=== PATIENT | female | born 1970 | race Caucasian/White ===

== ENCOUNTER 2016-04-22 16:45 | Emergency (ER) | payer MEDICAID ==
--- NOTE | 2016-04-22 17:14 | ER Document Report ---
ED Medical Screen (RME) - General Stated Complaint: CHEST PAIN Mode of Arrival: Wheelchair Information source: Patient Notes: Patient presents to the emergency department with complaints of cough congestion for about a week. Reports fever on and off. Last Tylenol was 8:00 this morning. He reports chest is sore from coughing I have greeted and performed a rapid initial assessment of this patient. A comprehensive ED assessment and evaluation of the patient, analysis of test results and completion of the medical decision making process will be conducted by additional ED providers. TRAVEL OUTSIDE OF THE [place] IN LAST 30 DAYS: No - Related Data Allergies/Adverse Reactions: cephalexin monohydrate [From Keflex] Allergy (Verified 07/25/15 19:13) rash Past Medical History - Past Medical History Cardiac Medical History: Denies: Hx Coronary Artery Disease, Hx Heart Attack, Hx Hypertension Pulmonary Medical History: Reports: Hx Pneumonia - hx 7-8 years ago Denies: Hx Asthma, Hx Bronchitis, Hx COPD, Hx Tuberculosis Neurological Medical History: Denies: Hx Cerebrovascular Accident, Hx Seizures Endocrine Medical History: Denies: Hx Diabetes Mellitus Type 1, Hx Diabetes Mellitus Type 2 GI Medical History: Reports: Hx Gastroesophageal Reflux Disease. Denies: Hx Hiatal Hernia Musculoskeltal Medical History: Denies Hx Arthritis Psychiatric Medical History: Reports: Hx Anxiety Past Surgical History: Reports: Hx Breast Surgery, Hx Section - X1, Hx Tubal Ligation. Denies: Hx Hysterectomy, Hx Pacemaker - Immunizations Immunizations up to date: Yes Hx Diphtheria, Pertussis, Tetanus Vaccination: Yes Physical Exam - Vital signs Vitals: Temp Pulse Resp BP Pulse Ox 98.2 F 84 22 H 150/77 H 99 04/22/16 16:54 04/22/16 16:54 04/22/16 16:54 04/22/16 16:54 04/22/16 16:54 Course - Vital Signs Vital signs: Temp Pulse Resp BP Pulse Ox 98.2 F 84 22 H 150/77 H 99 04/22/16 16:54 04/22/16 16:54 04/22/16 16:54 04/22/16 16:54 04/22/16 16:54
[2016-04-22] MEDS ORDERED: AZITHROMYCIN 250 MG TABLET PO ONE (18:46)
[2016-04-22] MEDS ORDERED: IPRATROPIUM/ALBUTEROL 0.5-2.5 MG/3 ML AMPUL NEB ONE (18:46)
[2016-04-22] MEDS ORDERED: BENZONATATE 100 MG CAPSULE PO ONE (18:46)
[2016-04-22] MEDS ORDERED: HYDROCODONE/ACETAMINOPHEN 5-325 MG TABLET PO ONE (18:46)
[2016-04-22] MEDS ORDERED: ALBUTEROL SULFATE 0.083% NEB 2.5 MG/3 ML AMPUL NEB ONE (18:46)
--- NOTE | 2016-04-22 18:48 | ER Document Report ---
ED Respiratory Problem - General Chief Complaint: Cough Stated Complaint: CHEST PAIN Time seen by provider: 18:46 Mode of Arrival: Wheelchair TRAVEL OUTSIDE OF THE [place] IN LAST 30 DAYS: No - HPI Patient complains to provider of: Cough, Short of breath Onset: Last week Duration: Worse/persistent Quality of pain: Achy Severity: Moderate Pain Level: 3 Context: Smoker Short of Breath: Moderate Chest pain/discomfort: Tightness Cough: Productive Sputum amount: Small Sputum color: Yellow Sputum consistency: Mucoid Associated symptoms: Congestion, Cough, Short of breath, Wheezing Similar symptoms previously: Yes Recently seen / treated by doctor: No Notes: Patient is a 45-year-old female presenting to the emergency room complaining of painful cough productive of a small amount of yellow phlegm that's been present for the past week, she denies a fever, she reports her daughter was ill with similar symptoms recently, patient is a smoker - Related Data Allergies/Adverse Reactions: cephalexin monohydrate [From Keflex] Allergy (Verified 07/25/15 19:13) rash Past Medical History - General Information source: Patient - Social History Smoking Status: Current Every Day Smoker Chew tobacco use (# tins/day): No Frequency of alcohol use: None Drug Abuse: None Family History: Malignancy - father, lung cancer Patient has suicidal ideation: No Patient has homicidal ideation: No - Past Medical History Cardiac Medical History: Denies: Hx Coronary Artery Disease, Hx Heart Attack, Hx Hypertension Pulmonary Medical History: Reports: Hx Pneumonia - hx 7-8 years ago Denies: Hx Asthma, Hx Bronchitis, Hx COPD, Hx Tuberculosis Neurological Medical History: Denies: Hx Cerebrovascular Accident, Hx Seizures Endocrine Medical History: Denies: Hx Diabetes Mellitus Type 1, Hx Diabetes Mellitus Type 2 Renal/ Medical History: Denies: Hx Peritoneal Dialysis GI Medical History: Reports: Hx Gastroesophageal Reflux Disease. Denies: Hx Hiatal Hernia Musculoskeltal Medical History: Denies Hx Arthritis Psychiatric Medical History: Reports: Hx Anxiety Past Surgical History: Reports: Hx Breast Surgery, Hx Section - X1, Hx Tubal Ligation. Denies: Hx Hysterectomy, Hx Pacemaker - Immunizations Immunizations up to date: Yes Hx Diphtheria, Pertussis, Tetanus Vaccination: Yes Hx Pneumococcal Vaccination: 01/27/12 Review of Systems - Review of Systems Constitutional: No symptoms reported. denies: Fever EENT: No symptoms reported Cardiovascular: No symptoms reported Respiratory: See HPI Gastrointestinal: No symptoms reported Genitourinary: No symptoms reported Female Genitourinary: No symptoms reported Musculoskeletal: No symptoms reported Skin: No symptoms reported Hematologic/Lymphatic: No symptoms reported Neurological/Psychological: No symptoms reported -: Yes All other systems reviewed and negative Physical Exam - Vital signs Vitals: Temp Pulse Resp BP Pulse Ox 98.2 F 84 22 H 150/77 H 99 04/22/16 16:54 04/22/16 16:54 04/22/16 16:54 04/22/16 16:54 04/22/16 16:54 Interpretation: Hypertensive, Tachypneic - General General appearance: Appears well, Alert - HEENT Head: Normocephalic, Atraumatic Eyes: Normal Pupils: PERRL - Respiratory Respiratory status: No respiratory distress Chest status: Nontender Breath sounds: Nonproductive cough, Wheezing Chest palpation: Normal - Cardiovascular Rhythm: Regular Heart sounds: Normal auscultation Murmur: No - Abdominal Inspection: Normal Distension: No distension Bowel sounds: Normal Tenderness: Nontender Organomegaly: No organomegaly - Back Back: Normal, Nontender - Extremities General upper extremity: Normal inspection, Nontender, Normal color, Normal ROM , Normal temperature General lower extremity: Normal inspection, Nontender, Normal color, Normal ROM , Normal temperature, Normal weight bearing. No: Maryjane's sign - Neurological Neuro grossly intact: Yes Cognition: Normal Orientation: AAOx4 Shayna Coma Scale Eye Opening: Spontaneous [place] Coma Scale Verbal: Oriented [place] Coma Scale Motor: Obeys Commands Shayna Coma Scale Total: 15 Speech: Normal Motor strength normal: LUE, RUE, LLE, RLE Sensory: Normal - Psychological Associated symptoms: Normal affect, Normal mood - Skin Skin Temperature: Warm Skin Moisture: Dry Skin Color: Normal Course - Re-evaluation Re-evalutation: 04/22/16 19:46 Patient resting comfortably, reports improvement of symptoms, lungs are clear to auscultation, will attempt to ambulate patient and make sure shortness of breath does not worsen, anticipate likely discharge home with prescriptions and follow-up 04/22/16 19:54 Patient able to ambulate without difficulty, reports feeling much better and ready to go home, she was given several prescriptions and information for follow -up, advised to return if symptoms worsen or any additional concerns, patient also advised to quit smoking, patient acknowledges understanding and agreement with this plan - Vital Signs Vital signs: Temp Pulse Resp BP Pulse Ox 98.2 F 84 22 H 150/77 H 99 04/22/16 16:54 04/22/16 16:54 04/22/16 16:54 04/22/16 16:54 04/22/16 16:54 - Diagnostic Test Radiology reviewed: Image reviewed, Reports reviewed - EKG Interpretation by Me EKG shows normal: Sinus rhythm Rate: Normal Rhythm: NSR When compared to previous EKG there are: No significant change Discharge - Discharge Clinical Impression: COPD exacerbation Acute bronchitis Qualifiers: Bronchitis organism: unspecified organism Qualified Code(s): J20.9 - Acute bronchitis, unspecified Condition: Stable Disposition: HOME, SELF-CARE Instructions: Bronchitis ([facility]), Bronchitis With Bronchospasm (Wheezing) ([facility]), Chronic Obstructive Lung Disease ([facility]) Additional Instructions: Follow up with your primary care provider in one to 2 days. Return to the emergency room immediately if symptoms worsen or any additional concerns. Prescriptions: Hydrocodone Bit/Homatropine [Hycodan Syrup 5-1.5 mg/5 ml Ud Cup] 5 ml PO Q4HP PRN #120 ml PRN Reason: Albuterol Sulfate [Proair HFA Inhalation Aerosol 8.5 gm MDI] 1 puff IH Q4 PRN # 1 mdi PRN Reason: Azithromycin [Zithromax 250 mg Tablet] 250 mg PO ASDIR PRN #4 tablet PRN Reason: Prednisone 40 mg PO DAILY #8 tablet Forms: Smoking Cessation Education Referrals: ELY ALTMAN MD [Primary Care Provider] - Follow up as needed
--- NOTE | 2016-04-22 19:22 | EKG REPORT ---
SEVERITY:- BORDERLINE ECG - SINUS RHYTHM PROBABLE LEFT ATRIAL ABNORMALITY : Confirmed by: Veronica Buckley MD 22-Apr-2016 19:22:06
[2016-04-22] MEDS ORDERED: PREDNISONE 20 MG TABLET PO ONE (19:45)
[2016-04-22 20:14] VITALS: BP 120/89
== END 2016-04-22 20:16 | disposition home or self-care (01) ==
LOC: ER 16:45
DX: J44.0 Chronic obstructive pulmonary disease with (acute) lower respiratory infection (principal); J20.9 Acute bronchitis, unspecified; J44.1 Chronic obstructive pulmonary disease with (acute) exacerbation; R05 Cough; R06.02 Shortness of breath; F17.200 Nicotine dependence, unspecified, uncomplicated; Z88.1 Allergy status to other antibiotic agents; Z80.1 Family history of malignant neoplasm of trachea, bronchus and lung
CPT/HCPCS: 93005; 94640 ×2; 99283; 71020; 93010; J3490; Q0144; J7512; J7620

== ENCOUNTER 2016-07-14 16:33 | Emergency (ER) | payer MEDICAID ==
[2016-07-14 16:39] VITALS: BP 128/89
[2016-07-14] MEDS ORDERED: OXYCODONE-ACETAMINOPHEN 5-325 MG TABLET PO ONE (17:02)
[2016-07-14] MEDS ORDERED: PROMETHAZINE HCL 25 MG TABLET PO ONE (17:02)
[2016-07-14 17:33] LABS: ABSOLUTE BASOPHILS # (AUTO) 0.1 10^3/uL (0.0-0.2); ABSOLUTE LYMPHOCYTES (AUTO) 2.2 10^3/uL (0.5-4.7); BASOPHILS % (AUTO) 0.4 % (0-2); EOSINOPHILS % (AUTO) 0.4 % (0-6); HEMOGLOBIN 14.1 g/dL (12.0-15.5); HGB HCT DIFFERENCE 0.3; LYMPHOCYTES % (AUTO) 19.3 % (13-45); MEAN CORPUSCULAR HEMOGLOBIN 28.4 pg (27.0-33.4); MEAN CORPUSCULAR HGB CONC 33.5 g/dL (32.0-36.0); MEAN CORPUSCULAR VOLUME 85 fl (80-97); RED BLOOD COUNT 4.95 10^6/uL (3.72-5.28); RED CELL DISTRIBUTION WIDTH 13.9 % (11.5-14.0); SEGMENTED NEUTROPHILS % (AUTO) 70.9 % (42-78); WHITE BLOOD COUNT 11.3 10^3/uL (4.0-10.5)
--- NOTE | 2016-07-14 17:36 | ER Document Report ---
ED Medical Screen (RME) - General Chief Complaint: Chest Congestion Stated Complaint: CHEST PAIN Notes: Patient says that she has been very congested with a cough for a couple of days. Today, she has significant substernal anterior chest pains that it especially hurts when she takes a deep breath or tries to cough and for that reason she is producing very little phlegm. She is been sleeping all the time, as well. Not aware of any fever. Patient is a cigarette smoker. No history of asthma or COPD. On no chronic medications. TRAVEL OUTSIDE OF THE [place] IN LAST 30 DAYS: No - Related Data Allergies/Adverse Reactions: cephalexin monohydrate [From [employer]] Allergy (Verified 07/14/16 16:36) rash Past Medical History - Past Medical History Cardiac Medical History: Denies: Hx Coronary Artery Disease, Hx Heart Attack, Hx Hypertension Pulmonary Medical History: Reports: Hx Pneumonia - hx 7-8 years ago Denies: Hx Asthma, Hx Bronchitis, Hx COPD, Hx Tuberculosis Neurological Medical History: Denies: Hx Cerebrovascular Accident, Hx Seizures Endocrine Medical History: Denies: Hx Diabetes Mellitus Type 1, Hx Diabetes Mellitus Type 2 Renal/ Medical History: Denies: Hx Peritoneal Dialysis GI Medical History: Reports: Hx Gastroesophageal Reflux Disease. Denies: Hx Hiatal Hernia Musculoskeltal Medical History: Denies Hx Arthritis Psychiatric Medical History: Reports: Hx Anxiety Past Surgical History: Reports: Hx Breast Surgery, Hx Section - X1, Hx Tubal Ligation. Denies: Hx Hysterectomy, Hx Pacemaker - Immunizations Immunizations up to date: Yes Hx Diphtheria, Pertussis, Tetanus Vaccination: Yes Physical Exam - Vital signs Vitals: Temp Pulse Resp BP Pulse Ox 97.9 F 79 20 128/89 H 99 07/14/16 16:37 07/14/16 16:37 07/14/16 16:37 07/14/16 16:37 07/14/16 16:37 Course - Vital Signs Vital signs: Temp Pulse Resp BP Pulse Ox 97.9 F 79 20 128/89 H 99 07/14/16 16:37 07/14/16 16:37 07/14/16 16:37 07/14/16 16:37 07/14/16 16:37 - Laboratory Result Diagrams: 07/14/16 17:05 07/14/16 17:05
[2016-07-14 17:48] LABS: ALANINE AMINOTRANSFERASE 27 U/L (9-52); ALBUMIN 4.4 g/dL (3.5-5.0); ALKALINE PHOSPHATASE 66 U/L (38-126); ANION GAP 12 (5-19); ASPARTATE AMINO TRANSFERASE 20 U/L (14-36); BILIRUBIN,DIRECT 0.3 mg/dL (0.0-0.4); BILIRUBIN,TOTAL 0.6 mg/dL (0.2-1.3); BLOOD UREA NITROGEN 10 mg/dL (7-20); CALCIUM 9.4 mg/dL (8.4-10.2); CARBON DIOXIDE 28 mmol/L (22-30); CHLORIDE 101 mmol/L (98-107); CREATINE KINASE 61 U/L (30-135); GLUCOSE 133 mg/dL (75-110); SODIUM 141.4 mmol/L (137-145); TOTAL PROTEIN 7.2 g/dL (6.3-8.2)
[2016-07-14 18:00] LABS: TROPONIN I < 0.012 ng/mL
--- NOTE | 2016-07-14 20:06 | EKG REPORT ---
SEVERITY:- NORMAL ECG - SINUS RHYTHM : Confirmed by: Veronica Buckley MD 14-Jul-2016 20:05:46
== END 2016-07-14 23:17 | disposition left against medical advice (07) ==
LOC: ER 16:33
DX: Z53.9 Procedure and treatment not carried out, unspecified reason (principal); R09.89 Other specified symptoms and signs involving the circulatory and respiratory systems; R07.9 Chest pain, unspecified; R05 Cough
CPT/HCPCS: 93005; 99281; 36415; 87040; 82553; 82550; 85025; 80053; 84484; 71020; 93010; J3490

== ENCOUNTER 2016-08-31 18:39 | Emergency (ER) | payer MEDICAID ==
[2016-08-31] MEDS ORDERED: KETOROLAC TROMETHAMINE INJ/PF 30 MG/1 ML SDV IV ONE (19:23)
[2016-08-31] MEDS ORDERED: LORAZEPAM INJ 2 MG/1 ML VIAL IV ONE (19:23)
[2016-08-31] MEDS ORDERED: LIDOCAINE 4%/TETRACAINE 0.5%/EPI 0.18% 5 ML TOPICAL SOLN TOP ONE (19:23)
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
[2016-08-31 20:23] LABS: ABSOLUTE BASOPHILS # (AUTO) 0.1 10^3/uL (0.0-0.2); ABSOLUTE LYMPHOCYTES (AUTO) 2.4 10^3/uL (0.5-4.7); ABSOLUTE MONOCYTES (AUTO) 0.6 10^3/uL (0.1-1.4); BASOPHILS % (AUTO) 0.9 % (0-2); EOSINOPHILS % (AUTO) 0.6 % (0-6); HEMATOCRIT 40.9 % (36.0-47.0); HEMOGLOBIN 13.2 g/dL (12.0-15.5); HGB HCT DIFFERENCE -1.3; LYMPHOCYTES % (AUTO) 29.4 % (13-45); MEAN CORPUSCULAR HEMOGLOBIN 27.8 pg (27.0-33.4); MEAN CORPUSCULAR HGB CONC 32.4 g/dL (32.0-36.0); MEAN CORPUSCULAR VOLUME 86 fl (80-97); MONOCYTES % (AUTO) 7.6 % (3-13); RED BLOOD COUNT 4.76 10^6/uL (3.72-5.28); RED CELL DISTRIBUTION WIDTH 13.8 % (11.5-14.0); SEGMENTED NEUTROPHILS % (AUTO) 61.5 % (42-78); WHITE BLOOD COUNT 8.1 10^3/uL (4.0-10.5)
[2016-08-31] MEDS ORDERED: LIDOCAINE 1% INJ-PF (10 MG/ML) 30 ML SDV INJ ONE (20:29)
[2016-08-31 20:33] LABS: ALANINE AMINOTRANSFERASE 28 U/L (9-52); ALBUMIN 3.9 g/dL (3.5-5.0); ALCOHOL 36 mg/dL (NONE DETECTED); ALKALINE PHOSPHATASE 62 U/L (38-126); ANION GAP 11 (5-19); ASPARTATE AMINO TRANSFERASE 18 U/L (14-36); BILIRUBIN,DIRECT 0.2 mg/dL (0.0-0.4); BILIRUBIN,TOTAL 0.4 mg/dL (0.2-1.3); BLOOD UREA NITROGEN 12 mg/dL (7-20); CALCIUM 9.2 mg/dL (8.4-10.2); CARBON DIOXIDE 24 mmol/L (22-30); CHLORIDE 108 mmol/L (98-107); CREATININE RESULT 0.83 mg/dL (0.52-1.25); GLUCOSE 106 mg/dL (75-110); SODIUM 142.7 mmol/L (137-145); TOTAL PROTEIN 6.7 g/dL (6.3-8.2)
[2016-08-31 20:43] LABS: APPEARANCE,URINE CLEAR; BILIRUBIN,URINE NEGATIVE (NEGATIVE); GLUCOSE, URINE NEGATIVE (NEGATIVE); KETONES,URINE NEGATIVE (NEGATIVE); LEUKOCYTE ESTERASE,URINE MODERATE (NEGATIVE); NITRITE,URINE NEGATIVE (NEGATIVE); PROTEIN,URINE NEGATIVE (NEGATIVE); URINE SPECIFIC GRAVITY 1.002; UROBILINOGEN,URINE NEGATIVE mg/dL (<2.0)
[2016-08-31 20:53] LABS: URINE BARBITURATES SCREEN NEGATIVE; URINE METHADONE SCREEN NEGATIVE; URINE OPIATES LOW UNCONFIRMED POSITIVE; URINE PHENCYCLIDINE SCREEN NEGATIVE
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
[2016-08-31] MEDS ORDERED: SULFAMETHOXAZOLE/TRIMETHOPRIM 800-160 MG TABLET PO ONE (22:06)
[2016-08-31] MEDS ORDERED: IBUPROFEN 800 MG TABLET PO ONE (22:06)
[2016-08-31 22:28] VITALS: BP 125/88
--- NOTE | 2016-09-01 09:11 | EKG REPORT ---
SEVERITY:- ABNORMAL ECG - SINUS RHYTHM BORDERLINE LEFT AXIS DEVIATION NONSPECIFIC T ABNORMALITIES, INFERIOR LEADS : Confirmed by: Veronica Buckley MD 01-Sep-2016 09:10:42
== END 2016-08-31 22:26 | disposition home or self-care (01) ==
LOC: ER 18:39
PROC: 0HQDXZZ Repair Right Lower Arm Skin, External Approach (ICD-10-PCS; principal; 2016-08-31)
DX: S41.111A Laceration without foreign body of right upper arm, initial encounter (principal); F41.9 Anxiety disorder, unspecified; M54.5 Low back pain; Z79.899 Other long term (current) drug therapy; Y09 Assault by unspecified means; F17.200 Nicotine dependence, unspecified, uncomplicated; N39.0 Urinary tract infection, site not specified
CPT/HCPCS: 93005; 99284; 96374; 36415; 80307 ×4; 85025; 80053; 81001; 72220; 73090; 93010; 12004; J3490 ×3; J1885

== ENCOUNTER 2016-09-11 14:59 | Emergency (ER) | payer MEDICAID ==
[2016-09-11 15:04] VITALS: BP 125/62
--- NOTE | 2016-09-11 15:32 | ER Document Report ---
HPI - HPI Patient complains to provider of: suture removal Onset: Other - 12 days Onset/Duration: Better Quality of pain: Achy Pain Level: 3 Context: Pt States she is here for suture removal to laceration to the right forearm. Pt does states she has had occasional muscle spasms to area just superior to laceration. Associated Symptoms: Other - muscle spasms Exacerbated by: Denies Relieved by: Denies Similar symptoms previously: No Recently seen / treated by doctor: Yes - ROS ROS below otherwise negative: Yes Systems Reviewed and Negative: Yes All other systems reviewed and negative - CONSTITUTIONAL Constitutional: DENIES: Fever - NEURO Neurology: DENIES: Weakness - REPRODUCTIVE Reproductive: DENIES: : - MUSCULOSKELETAL Musculoskeletal: REPORTS: Extremity pain - DERM Skin Color: Normal Skin Problems: Laceration Past Medical History - General Information source: Patient - Social History Smoking Status: Current Every Day Smoker Frequency of alcohol use: None Drug Abuse: None Occupation: none Lives with: Family Family History: Malignancy - father, lung cancer Patient has suicidal ideation: No Patient has homicidal ideation: No - Past Medical History Cardiac Medical History: Denies: Hx Coronary Artery Disease, Hx Heart Attack, Hx Hypertension Pulmonary Medical History: Reports: Hx Pneumonia - hx 7-8 years ago Denies: Hx Asthma, Hx Bronchitis, Hx COPD, Hx Tuberculosis Neurological Medical History: Denies: Hx Cerebrovascular Accident, Hx Seizures Endocrine Medical History: Denies: Hx Diabetes Mellitus Type 1, Hx Diabetes Mellitus Type 2 Renal/ Medical History: Denies: Hx Peritoneal Dialysis GI Medical History: Reports: Hx Gastroesophageal Reflux Disease. Denies: Hx Hiatal Hernia Musculoskeltal Medical History: Denies Hx Arthritis Psychiatric Medical History: Reports: Hx Anxiety Past Surgical History: Reports: Hx Breast Surgery, Hx Section - X1, Hx Tubal Ligation. Denies: Hx Hysterectomy, Hx Pacemaker - Immunizations Immunizations up to date: Yes Hx Diphtheria, Pertussis, Tetanus Vaccination: Yes Hx Pneumococcal Vaccination: 01/27/12 Vertical Provider Document - CONSTITUTIONAL Agree With Documented VS: Yes Exam Limitations: No Limitations General Appearance: WD/WN, No Apparent Distress - INFECTION CONTROL TRAVEL OUTSIDE OF THE [place] IN LAST 30 DAYS: No - HEENT HEENT: Atraumatic, Normocephalic - NECK Neck: Normal Inspection - RESPIRATORY Respiratory: No Respiratory Distress O2 Sat by Pulse Oximetry: 98 - CARDIOVASCULAR Pulses: Normal: Radial - MUSCULOSKELETAL/EXTREMETIES Musculoskeletal/Extremeties: MAEW, FROM, Non-Tender, No Edema - NEURO Level of Consciousness: Awake, Alert, Appropriate Motor/Sensory: No Motor Deficit - DERM Integumentary: Warm, Dry, Laceration - Sutured laceration to right forearm with 14 intact sutures Course - Vital Signs Vital signs: Temp Pulse Resp BP Pulse Ox 98.1 F 85 16 125/62 98 09/11/16 15:03 09/11/16 15:03 09/11/16 15:03 09/11/16 15:03 09/11/16 15:03 Discharge - Discharge Clinical Impression: Encounter for removal of sutures Condition: Stable Disposition: HOME, SELF-CARE Instructions: Suture Removal Additional Instructions: Return as needed for any new or worsening symptoms follow up with orthopedic doctor for any continued pain or problems Referrals: [facility] [Provider Group] - Follow up as needed
== END 2016-09-11 16:17 | disposition home or self-care (01) ==
LOC: ER 14:59
DX: Z48.02 Encounter for removal of sutures (principal); F17.200 Nicotine dependence, unspecified, uncomplicated

== ENCOUNTER → 2016-10-05 | Outpatient (CLI) | payer MEDICAID ==
[2016-10-05 17:25] LABS: ABSOLUTE LYMPHOCYTES (AUTO) 1.5 10^3/uL (0.5-4.7); ABSOLUTE MONOCYTES (AUTO) 1.4 10^3/uL (0.1-1.4); ABSOLUTE NEUT (AUTO) 10.9 10^3/uL (1.7-8.2); BASOPHILS % (AUTO) 0.3 % (0-2); HEMATOCRIT 45.8 % (36.0-47.0); HEMOGLOBIN 14.6 g/dL (12.0-15.5); LYMPHOCYTES % (AUTO) 11.1 % (13-45); MEAN CORPUSCULAR HEMOGLOBIN 27.2 pg (27.0-33.4); MEAN CORPUSCULAR HGB CONC 31.9 g/dL (32.0-36.0); MEAN CORPUSCULAR VOLUME 85 fl (80-97); MONOCYTES % (AUTO) 9.9 % (3-13); RED BLOOD COUNT 5.38 10^6/uL (3.72-5.28); RED CELL DISTRIBUTION WIDTH 13.8 % (11.5-14.0); SEGMENTED NEUTROPHILS % (AUTO) 78.7 % (42-78); WHITE BLOOD COUNT 13.9 10^3/uL (4.0-10.5)
[2016-10-05 17:49] LABS: ALANINE AMINOTRANSFERASE 37 U/L (9-52); ALBUMIN 4.4 g/dL (3.5-5.0); ALKALINE PHOSPHATASE 73 U/L (38-126); ANION GAP 15 (5-19); ASPARTATE AMINO TRANSFERASE 24 U/L (14-36); BILIRUBIN,DIRECT 0.3 mg/dL (0.0-0.4); BILIRUBIN,TOTAL 0.5 mg/dL (0.2-1.3); BLOOD UREA NITROGEN 9 mg/dL (7-20); CALCIUM 9.2 mg/dL (8.4-10.2); CARBON DIOXIDE 25 mmol/L (22-30); CHLORIDE 98 mmol/L (98-107); CREATININE RESULT 0.77 mg/dL (0.52-1.25); GLUCOSE 91 mg/dL (75-110); POTASSIUM 4.6 mmol/L (3.6-5.0); SODIUM 137.5 mmol/L (137-145); TOTAL PROTEIN 7.6 g/dL (6.3-8.2)
[2016-10-05 18:03] LABS: ERYTHROCYTE SEDIMENTATION RATE 20 mm/hr (0-20)
== END ==
LOC: OD 15:48
PROVIDERS: ATTEND Nurse Practitioner Acute Care
DX: R50.9 Fever, unspecified (principal)
CPT/HCPCS: 36415; 80053; 85025; 85652; 86140

== ENCOUNTER 2016-10-07 13:32 | Observation (INO) | payer MEDICAID ==
[2016-10-07] MEDS ORDERED: KETOROLAC TROMETHAMINE INJ/PF 30 MG/1 ML SDV IV ONE (14:03)
[2016-10-07] MEDS ORDERED: ONDANSETRON HCL INJ/PF 4 MG/2 ML SDV IV ONE (14:03)
--- NOTE | 2016-10-07 14:05 | ER Document Report ---
ED Medical Screen (RME) - General Chief Complaint: Nausea/Vomiting/Diarrhea Stated Complaint: BODY PAIN Time Seen by Provider: 10/07/16 14:00 Notes: Patient is a difficult historian because she is crying and sobbing throughout my initial evaluation. She says that she has been having pain "all over my body " for the past few days. She has been seen by a local practitioner and told that she has an infection somewhere. She is been having body aches, fevers, diarrhea, and this morning she has been vomiting. She says that she had a temperature of 103.2 this morning at home and took Tylenol. TRAVEL OUTSIDE OF THE [place] IN LAST 30 DAYS: No - Related Data Allergies/Adverse Reactions: cephalexin monohydrate [From [employer]] Allergy (Verified 10/07/16 13:50) rash Past Medical History - Past Medical History Cardiac Medical History: Denies: Hx Coronary Artery Disease, Hx Heart Attack, Hx Hypertension Pulmonary Medical History: Reports: Hx Pneumonia - hx 7-8 years ago Denies: Hx Asthma, Hx Bronchitis, Hx COPD, Hx Tuberculosis Neurological Medical History: Denies: Hx Cerebrovascular Accident, Hx Seizures Endocrine Medical History: Denies: Hx Diabetes Mellitus Type 1, Hx Diabetes Mellitus Type 2 Renal/ Medical History: Denies: Hx Peritoneal Dialysis GI Medical History: Reports: Hx Gastroesophageal Reflux Disease. Denies: Hx Hiatal Hernia Musculoskeltal Medical History: Denies Hx Arthritis Psychiatric Medical History: Reports: Hx Anxiety Past Surgical History: Reports: Hx Breast Surgery, Hx Section - X1, Hx Tubal Ligation. Denies: Hx Hysterectomy, Hx Pacemaker - Immunizations Immunizations up to date: Yes Hx Diphtheria, Pertussis, Tetanus Vaccination: Yes Physical Exam - Vital signs Vitals: Temp Pulse Resp BP Pulse Ox 98.6 F 105 H 22 H 124/83 99 10/07/16 13:49 10/07/16 13:49 10/07/16 13:49 10/07/16 13:49 10/07/16 13:49 Course - Vital Signs Vital signs: Temp Pulse Resp BP Pulse Ox 98.6 F 105 H 22 H 124/83 99 10/07/16 13:49 10/07/16 13:49 10/07/16 13:49 10/07/16 13:49 10/07/16 13:49
--- NOTE | 2016-10-07 14:13 | ER Document Report ---
ED General - General Mode of Arrival: Ambulatory Information source: Patient TRAVEL OUTSIDE OF THE [place] IN LAST 30 DAYS: No - HPI Onset: Other <NIDA MANCILLA - Last Filed: 10/07/16 19:06> <ELY LOCO - Last Filed: 10/07/16 20:10> - General Chief Complaint: Nausea/Vomiting/Diarrhea Stated Complaint: BODY PAIN Time Seen by Provider: 10/07/16 14:00 Notes: Presents to the emergency department with complaints of pain all over her body. She reports she has had diarrhea for 5 days vomited twice today. She reports fever on and off for the last couple days up to 103 today. She took tylenol at 1030 today. Patient was evaluated and treated by the urgent care 2 days ago with infection of unknown origin. She delivered a stool specimen this morning to urgent care for C. difficile that was ordered by Dr. Gracia. Patient reports that she cannot stand to be touched because she is hurting so bad. C/O neck pain , hurts to turn her head side to side. Denies trauma. Denies recent drug abuse. Denies IV drug use. She reports that she was able to take a dose of her Flagyl after she dropped off a stool specimen today. Denies sore throat cough pain with void. (NIDA MANCILLA) - Related Data Allergies/Adverse Reactions: cephalexin monohydrate [From K[employer]] Allergy (Verified 10/07/16 13:50) rash Past Medical History - Social History Family History: Malignancy - father, lung cancer Patient has suicidal ideation: No Patient has homicidal ideation: No - Past Medical History Cardiac Medical History: Denies: Hx Coronary Artery Disease, Hx Heart Attack, Hx Hypertension Pulmonary Medical History: Reports: Hx Pneumonia - hx 7-8 years ago Denies: Hx Asthma, Hx Bronchitis, Hx COPD, Hx Tuberculosis Neurological Medical History: Denies: Hx Cerebrovascular Accident, Hx Seizures Endocrine Medical History: Denies: Hx Diabetes Mellitus Type 1, Hx Diabetes Mellitus Type 2 Renal/ Medical History: Denies: Hx Peritoneal Dialysis GI Medical History: Reports: Hx Gastroesophageal Reflux Disease. Denies: Hx Hiatal Hernia Musculoskeltal Medical History: Denies Hx Arthritis Psychiatric Medical History: Reports: Hx Anxiety Past Surgical History: Reports: Hx Breast Surgery, Hx Section - X1, Hx Tubal Ligation. Denies: Hx Hysterectomy, Hx Pacemaker - Immunizations Immunizations up to date: Yes Hx Diphtheria, Pertussis, Tetanus Vaccination: Yes Hx Pneumococcal Vaccination: 01/27/12 <NIDA MANCILLA - Last Filed: 10/07/16 19:06> - General Information source: Patient - Social History Smoking Status: Current Every Day Smoker <ELY LOCO E - Last Filed: 10/07/16 20:10> Physical Exam - General General appearance: Alert, Anxious, Other - nontoxic looking In distress: Moderate - HEENT Head: Normocephalic Eyes: Normal. No: Pale conjunctiva Conjunctiva: No: Injected Extraocular movements intact: Yes Eyelashes: Normal Pupils: PERRL Ears: Normal External canal: Normal Tympanic membrane: Normal Nasal: Normal Mucous membranes: Moist Pharynx: Normal. No: Erythema, Exudate Neck: Normal. No: Lymphadenopathy - Respiratory Respiratory status: No respiratory distress Chest status: Nontender Breath sounds: Normal Chest palpation: Normal - Cardiovascular Rhythm: Regular Heart sounds: Normal auscultation Murmur: No - Abdominal Inspection: Normal Distension: No distension Bowel sounds: Normal Tenderness: Other - c/o pain to entire body Organomegaly: No organomegaly - Back Back: Normal - Extremities General upper extremity: Normal inspection, Tender - c/o pain to bilateral upper and lower extremities, Normal ROM, Normal strength General lower extremity: Normal inspection, Tender, Normal ROM, Normal strength - Neurological Neuro grossly intact: Yes Cognition: Normal Orientation: AAOx4 Shayna Coma Scale Eye Opening: Spontaneous [place] Coma Scale Verbal: Oriented [place] Coma Scale Motor: Obeys Commands [place] Coma Scale Total: 15 Speech: Normal Cranial nerves: Normal Motor strength normal: LUE, RUE, LLE, RLE Sensory: Normal - Psychological Associated symptoms: Normal affect, Anxious - Skin Skin Temperature: Warm Skin Moisture: Dry Skin Color: Normal Skin irregularity: negative: Abscess <NIDA MANCILLA - Last Filed: 10/07/16 19:06> <ELY LOCO - Last Filed: 10/07/16 20:10> - Vital signs Vitals: Temp Pulse Resp BP Pulse Ox 98.6 F 105 H 22 H 124/83 99 10/07/16 13:49 10/07/16 13:49 10/07/16 13:49 10/07/16 13:49 10/07/16 13:49 - Skin Notes: no petechia (NIDA MANCILLA) Course - Laboratory Result Diagrams: 10/07/16 14:56 10/07/16 14:56 - Diagnostic Test Radiology reviewed: Image reviewed, Reports reviewed - neg <NIDA MANCILLA - Last Filed: 10/07/16 19:06> - Laboratory Result Diagrams: 10/07/16 14:56 10/07/16 14:56 <ELY LOCO - Last Filed: 10/07/16 20:10> - Re-evaluation Re-evalutation: 10/07/16 16:[address] Loco regarding patient's complaint of severe pain patient's history of drug use. C. difficile is negative. White count continues to climb is 17.2 elevated from 13 2 days ago. Patient complains of severe body pain. Reports fever [address] Loco in to assess patient differentials include endocarditis to spinal meningitis. LP ordered. Blood cultures ordered Precautions noted, staff aware. Dr. Garcia paged through hospital recordak operator. 10/07/16 16:51 Dr. Garcia returned call request to get the results of the LP before he makes a decision on admission. 10/07/16 18:51 lymes and ricketssial ordered, LP with no signs of meningitis. CRP 294.4 UP FROM 38 ON 10/05/16, ESR 35 up from 20 on 10/05/16. Temp. 98.9, unknown source of infection. Contacted Dr Garcia, he is concerned over why patient needs to be admitted. Reviewed labs with him, reviewed patient c/o. Dr Loco notified, dr loco paged dr garcia via the hospital recordak operator. Report given and care turned over to dr loco. (NIDA MANCILLA) 10/07/16 20:[address] Garcia and will admit patient as Observation to Telemetry for fever of unknown origin and further work-up and evaluation. (ELY LOCO) - Vital Signs Vital signs: Temp Pulse Resp BP Pulse Ox 98.9 F 105 H 22 H 124/83 99 10/07/16 18:11 10/07/16 13:49 10/07/16 13:49 10/07/16 13:49 10/07/16 13:49 - Laboratory Laboratory results interpreted by me: 10/07/16 10/07/16 10/07/16 14:56 14:56 15:16 WBC 17.2 H Seg Neuts % (Manual) 94 H Band Neutrophils % 1 L Lymphocytes % (Manual) 3 L Monocytes % (Manual) 2 L Abs Neuts (Manual) 16.3 H ESR VBG pH Sodium 135.3 L C-Reactive Protein Urine Blood MODERATE H Ur Leukocyte Esterase TRACE H CSF Glucose 10/07/16 10/07/16 10/07/16 16:05 16:05 16:35 WBC Seg Neuts % (Manual) Band Neutrophils % Lymphocytes % (Manual) Monocytes % (Manual) Abs Neuts (Manual) ESR 35 H VBG pH 7.48 H Sodium C-Reactive Protein 293.8 H Urine Blood Ur Leukocyte Esterase CSF Glucose 10/07/16 17:33 WBC Seg Neuts % (Manual) Band Neutrophils % Lymphocytes % (Manual) Monocytes % (Manual) Abs Neuts (Manual) ESR VBG pH Sodium C-Reactive Protein Urine Blood Ur Leukocyte Esterase CSF Glucose 72 H Procedures - Lumbar Puncture Lumbar puncture Time completed: 17:37 Consent obtained: Yes Lumbar puncture pre-procedure: Sterile PPE donned, Betadine prep applied, Sterile drapes applied Patient position: Sitting Needle size: 22 Lumbar puncture location: L3-L4 Anesthetic type: 1% Lidocaine mL's of anesthetic: 3 Amount/type of drainage: 4 mL clear CSF Number of attempts: 2 Complications: No <ELY LOCO E - Last Filed: 10/07/16 20:10> Discharge - Discharge Admitting Provider: Ro <NIDA MANCILLA - Last Filed: 10/07/16 19:06> - Discharge Admitting Provider: Ro Unit Admitted: Telemetry <ELY LOCO E - Last Filed: 10/07/16 20:10> - Discharge Clinical Impression: Total body pain Leukocytosis Qualifiers: Leukocytosis type: unspecified Qualified Code(s): D72.829 - Elevated white blood cell count, unspecified Fever Qualifiers: Fever type: unspecified Qualified Code(s): R50.9 - Fever, unspecified Condition: Stable Disposition: ADMITTED OBSERVATION Referrals: ELY GARCIA MD [Primary Care Provider] - Follow up as needed
[2016-10-07 15:08] LABS: HEMATOCRIT 42.8 % (36.0-47.0); HEMOGLOBIN 13.8 g/dL (12.0-15.5); HGB HCT DIFFERENCE -1.4; MEAN CORPUSCULAR HGB CONC 32.2 g/dL (32.0-36.0); MEAN CORPUSCULAR VOLUME 84 fl (80-97); RED BLOOD COUNT 5.12 10^6/uL (3.72-5.28); RED CELL DISTRIBUTION WIDTH 13.9 % (11.5-14.0); WHITE BLOOD COUNT 17.2 10^3/uL (4.0-10.5)
[2016-10-07 15:27] LABS: ALANINE AMINOTRANSFERASE 39 U/L (9-52); ALBUMIN 3.7 g/dL (3.5-5.0); ALKALINE PHOSPHATASE 84 U/L (38-126); ANION GAP 11 (5-19); ASPARTATE AMINO TRANSFERASE 27 U/L (14-36); BILIRUBIN,DIRECT 0.3 mg/dL (0.0-0.4); BILIRUBIN,TOTAL 0.5 mg/dL (0.2-1.3); BLOOD UREA NITROGEN 9 mg/dL (7-20); CALCIUM 8.9 mg/dL (8.4-10.2); CARBON DIOXIDE 26 mmol/L (22-30); CHLORIDE 98 mmol/L (98-107); CREATININE RESULT 0.69 mg/dL (0.52-1.25); GLUCOSE 108 mg/dL (75-110); LIPASE 36.3 U/L (23-300); POTASSIUM 4.2 mmol/L (3.6-5.0); SODIUM 135.3 mmol/L (137-145); TOTAL PROTEIN 6.6 g/dL (6.3-8.2)
[2016-10-07 15:33] LABS: APPEARANCE,URINE CLEAR; BILIRUBIN,URINE NEGATIVE (NEGATIVE); GLUCOSE, URINE NEGATIVE (NEGATIVE); KETONES,URINE NEGATIVE (NEGATIVE); LEUKOCYTE ESTERASE,URINE TRACE (NEGATIVE); NITRITE,URINE NEGATIVE (NEGATIVE); PROTEIN,URINE NEGATIVE (NEGATIVE); URINE SPECIFIC GRAVITY 1.003; UROBILINOGEN,URINE NEGATIVE mg/dL (<2.0)
[2016-10-07 15:38] LABS: BAND NEUTROPHILS % (MANUAL) 1 % (3-5); BASOPHILS % (MANUAL) 0 % (0-2); EOSINOPHILS % (MANUAL) 0 % (0-6); LYMPHOCYTES % (MANUAL) 3 % (13-45); TOTAL CELLS COUNTED 100
[2016-10-07 15:40] LABS: OVALOCYTES SLIGHT; POIKILOCYTOSIS SLIGHT; TOXIC GRANULATION SLIGHT
[2016-10-07 15:55] LABS: URINE BARBITURATES SCREEN NEGATIVE; URINE METHADONE SCREEN NEGATIVE; URINE OPIATES LOW NEGATIVE; URINE PHENCYCLIDINE SCREEN NEGATIVE
[2016-10-07] MEDS ORDERED: VANCOMYCIN HCL INJ 1000 MG VIAL IV ONE (16:13)
[2016-10-07] MEDS ORDERED: LIDOCAINE 1% INJ-PF (10 MG/ML) 30 ML SDV INJ ONE (16:24)
[2016-10-07] MEDS ORDERED: MIDAZOLAM 2 MG/2 ML INJ IV ONE (16:24)
[2016-10-07 17:05] LABS: VENOUS BLOOD BASE EXCESS 4.5 mmol/L; VENOUS BLOOD HCO3 28.2 mmol/L (20-32); VENOUS BLOOD PCO2 38.5 mmHg (35-63); VENOUS BLOOD PH 7.48 (7.30-7.42)
--- NOTE | 2016-10-07 17:23 | RADIOLOGY REPORT (SQ) ---
EXAM DESCRIPTION: CHEST SINGLE VIEW COMPLETED DATE/TIME: 10/07/2016 5:02 pm REASON FOR STUDY: fever pain COMPARISON: 07/14/2016. EXAM PARAMETERS: NUMBER OF VIEWS: One view. TECHNIQUE: Single frontal radiographic view of the chest acquired. RADIATION DOSE: NA LIMITATIONS: None. FINDINGS: LUNGS AND PLEURA: No opacities, masses or pneumothorax. No pleural effusion. MEDIASTINUM AND HILAR STRUCTURES: No masses. Contour normal. HEART AND VASCULAR STRUCTURES: Heart normal in size. Normal vasculature. BONES: No acute findings. HARDWARE: None in the chest. OTHER: No other significant finding. IMPRESSION: NO ACUTE RADIOGRAPHIC FINDING IN THE CHEST. TECHNICAL DOCUMENTATION: JOB ID: [id number]
[2016-10-07 18:16] LABS: GLUCOSE,CSF 72 mg/dL (40-70)
[2016-10-07 18:31] LABS: APPEARANCE ALL TUBES CLEAR; RBC AVERAGE 2.5; RBC DILUENT USED NONE USED; RBC DILUTION FACTOR 1; RBC SIDE 1 2; RBC SIDE 2 3
[2016-10-07 18:32] LABS: TOTAL RBC SQUARES COUNTED 225; WHITE BLOOD CELL,CSF 4 /uL (0-5)
[2016-10-07 18:36] LABS: APPEARANCE ALL TUBES CLEAR; RBC DILUENT USED NONE USED; RBC DILUTION FACTOR 1; RBC SIDE 1 0; RBC SIDE 2 0; TOTAL RBC SQUARES COUNTED 225; WHITE BLOOD CELL,CSF 4 /uL (0-5)
--- NOTE | 2016-10-07 18:48 | EKG REPORT ---
SEVERITY:- NORMAL ECG - SINUS RHYTHM : Confirmed by: Ashvin Lopez MD 07-Oct-2016 18:47:43
[2016-10-07] MEDS ORDERED: ACETAMINOPHEN WITH CODEINE #3 TABLET PO ONE (19:38)
[2016-10-07] MEDS ORDERED: NORMAL SALINE 1000 ML 1,000 ML IV ONE (19:39)
[2016-10-07] MEDS ORDERED: NORMAL SALINE 1000 ML 1,000 ML IV PRN (23:05)
[2016-10-07] MEDS ORDERED: DOCUSATE SODIUM 100 MG CAPSULE PO PRN (23:09)
[2016-10-07] MEDS ORDERED: ZOLPIDEM TARTRATE 5 MG TABLET PO PRN (23:10)
[2016-10-07] MEDS ORDERED: DIAZEPAM 5 MG TABLET PO PRN (23:11)
[2016-10-07] MEDS: OXYCODONE HCL IR 5 MG TABLET PO PRN (23:51)
[2016-10-07] MEDS ORDERED: DOXYCYCLINE HYCLATE 100 MG TABLET PO ONE (23:59)
[2016-10-07] MEDS ORDERED: METRONIDAZOLE 500 MG TABLET PO ONE (23:59)
[2016-10-08] MEDS: ACETAMINOPHEN 325 MG TABLET PO PRN ×3 (05:00→17:07)
[2016-10-08] MEDS: METRONIDAZOLE 500 MG TABLET PO SCH ×2 (05:01→15:35)
[2016-10-08] MEDS ORDERED: LANSOPRAZOLE 30 MG TAB.RAP.DR PO SCH (06:00)
[2016-10-08 06:11] LABS: ABSOLUTE BASOPHILS # (AUTO) 0.1 10^3/uL (0.0-0.2); ABSOLUTE LYMPHOCYTES (AUTO) 1.9 10^3/uL (0.5-4.7); ABSOLUTE NEUT (AUTO) 9.3 10^3/uL (1.7-8.2); BASOPHILS % (AUTO) 0.4 % (0-2); EOSINOPHILS % (AUTO) 0.1 % (0-6); HEMATOCRIT 40.2 % (36.0-47.0); HEMOGLOBIN 12.5 g/dL (12.0-15.5); HGB HCT DIFFERENCE -2.7; LYMPHOCYTES % (AUTO) 15.6 % (13-45); MEAN CORPUSCULAR HEMOGLOBIN 26.9 pg (27.0-33.4); MEAN CORPUSCULAR VOLUME 87 fl (80-97); MONOCYTES % (AUTO) 7.9 % (3-13); RED BLOOD COUNT 4.63 10^6/uL (3.72-5.28); RED CELL DISTRIBUTION WIDTH 13.8 % (11.5-14.0); WHITE BLOOD COUNT 12.2 10^3/uL (4.0-10.5)
[2016-10-08 06:25] LABS: ALANINE AMINOTRANSFERASE 37 U/L (9-52); ALBUMIN 3.1 g/dL (3.5-5.0); ALKALINE PHOSPHATASE 71 U/L (38-126); ANION GAP 9 (5-19); ASPARTATE AMINO TRANSFERASE 21 U/L (14-36); BILIRUBIN,DIRECT 0.4 mg/dL (0.0-0.4); BILIRUBIN,TOTAL 0.4 mg/dL (0.2-1.3); BLOOD UREA NITROGEN 11 mg/dL (7-20); CALCIUM 8.4 mg/dL (8.4-10.2); CARBON DIOXIDE 25 mmol/L (22-30); CHLORIDE 103 mmol/L (98-107); CHOLESTEROL 111.35 mg/dL (0-200); CREATININE RESULT 0.69 mg/dL (0.52-1.25); Direct HDL 32 mg/dL (>40); GLUCOSE 99 mg/dL (75-110); POTASSIUM 4.3 mmol/L (3.6-5.0); SODIUM 136.6 mmol/L (137-145); TOTAL PROTEIN 5.9 g/dL (6.3-8.2); TRIGLYCERIDES 117 mg/dL (<150)
[2016-10-08 06:36] LABS: DIRECT LDL 42 mg/dL (<100)
[2016-10-08] MEDS: OXYCODONE HCL IR 5 MG TABLET PO PRN ×3 (08:49→17:06)
[2016-10-08] MEDS ORDERED: DOXYCYCLINE HYCLATE 100 MG TABLET PO SCH (10:00)
[2016-10-08] MEDS ORDERED: ENOXAPARIN SODIUM INJ 40 MG/0.4 ML DISP.SYRIN SUBCUT SCH (10:00)
--- NOTE | 2016-10-08 13:02 | PDOC H&P ---
History of Present Illness Admission Date/PCP: 10/07/16 22:23 ELY ALTMAN Patient complains of: Fever at home, Gen. body ache,had diarrhea for 5 days. History of Present Illness: AYSE HARRY is a 45 year old female with hx of low back pain, neck pain, rhinitis, Insomnia nd chronic smoker, who was in her baseline till about 5 days ago when she started having diarrhea and later fever with gen. body ache and she was seen at urgent care and WBC was 312.2 and was told she has an infection ; she had stool for C-difficilex1 that was negative. On account of fever of 103.2 at home and worsening of gen. body ache, she came to ER for evaluation and mgt. She denied headache, travel outside [facility] and contact with animals.She had vomiting x2 on day of admission and admitted to some weight loss. Denied cough, hemoptysis, chest pain, dysuria, frequency, abd. pain. Past Medical History Cardiac Medical History: Denies: Coronary Artery Disease, Myocardial Infarction, Hypertension Pulmonary Medical History: Reports: Pneumonia - hx 7-8 years ago Denies: Asthma, Bronchitis, Chronic Obstructive Pulmonary Disease (COPD), Tuberculosis Neurological Medical History: Denies: Seizures Endocrine Medical History: Denies: Diabetes Mellitus Type 1, Diabetes Mellitus Type 2 GI Medical History: Reports: Gastroesophageal Reflux Disease Denies: Hiatal Hernia Musculoskeltal Medical History: Denies: Arthritis Hematology: Denies: Anemia Past Surgical History Past Surgical History: Reports: Section - X1, Tubal Ligation Denies: Hysterectomy, Pacemaker Social History Smoking Status: Former Smoker Number of Years Smokin Last Time Smoked: 3 days ago Frequency of Alcohol Use: None Hx Recreational Drug Use: No Drugs: Marijuana Hx Prescription Drug Abuse: No - Advance Directive Resuscitation Status: Full Code Family History Family History: Malignancy - father, lung cancer Parental Family History Reviewed: Yes Children Family History Reviewed: Yes Sibling(s) Family History Reviewed.: Yes Medication/Allergy Home Medications: Diazepam [Diazepam] 1 tab PO QHS 10/07/16 Oxycodone HCl [Oxycodone HCl] 1 tab PO Q12HP PRN 10/07/16 Ibuprofen [Motrin 800 mg Tablet] 800 mg PO Q8H PRN 10/08/16 Allergies/Adverse Reactions: cephalexin monohydrate [From Keflex] Allergy (Verified 10/07/16 13:50) rash Review of Systems Constitutional: PRESENT: fever(s), weight loss Eyes: PRESENT: as per HPI Ears: PRESENT: as per HPI Nose, Mouth, and Throat: PRESENT: as per HPI Cardiovascular: PRESENT: as per HPI Gastrointestinal: PRESENT: as per HPI, diarrhea, vomiting Genitourinary: PRESENT: as per HPI Musculoskeletal: PRESENT: back pain - Gen. body ache. Neurological: PRESENT: as per HPI Psychiatric: PRESENT: as per HPI Endocrine: PRESENT: as per HPI Hematologic/Lymphatic: PRESENT: as per HPI, easy bleeding Allergic/Immunologic: PRESENT: as per HPI Physical Exam Vital Signs: Temp Pulse Resp BP Pulse Ox 98.4 F 73 15 105/73 99 10/08/16 07:14 10/08/16 07:14 10/08/16 07:14 10/08/16 07:14 10/08/16 07:14 Intake & Output 10/07/16 10/08/16 10/09/16 06:59 06:59 06:59 Intake Total 644 Balance 644 General appearance: PRESENT: no acute distress, thin Eye exam: PRESENT: EOMI, PERRLA Mouth exam: PRESENT: neck supple, tongue midline Neck exam: PRESENT: full ROM Respiratory exam: PRESENT: clear to auscultation caren, symmetrical Cardiovascular exam: PRESENT: +S1, +S2 Pulses: PRESENT: +2 pedal pulses bilateral GI/Abdominal exam: PRESENT: normal bowel sounds Rectal exam: PRESENT: deferred Extremities exam: PRESENT: full ROM Musculoskeletal exam: PRESENT: full ROM Neurological exam: PRESENT: alert, awake, oriented to person, oriented to place , oriented to time, CN II-XII grossly intact Psychiatric exam: PRESENT: anxious Results Laboratory Results: 10/08/16 05:09 10/08/16 05:09 10/08/16 10/08/16 10/08/16 05:09 05:09 05:09 WBC 12.2 H RBC 4.63 Hgb 12.5 Hct 40.2 MCV 87 MCH 26.9 L MCHC 31.0 L RDW 13.8 Plt Count 291 Seg Neutrophils % 76.0 Lymphocytes % 15.6 Monocytes % 7.9 Eosinophils % 0.1 Basophils % 0.4 Absolute Neutrophils 9.3 H Absolute Lymphocytes 1.9 Absolute Monocytes 1.0 Absolute Eosinophils 0.0 Absolute Basophils 0.1 Sodium 136.6 L Potassium 4.3 Chloride 103 Carbon Dioxide 25 Anion Gap 9 BUN 11 Creatinine 0.69 Est GFR ( Amer) > 60 Est GFR (Non-Af Amer) > 60 Glucose 99 Calcium 8.4 Total Bilirubin 0.4 AST 21 ALT 37 Alkaline Phosphatase 71 Total Protein 5.9 L Albumin 3.1 L Triglycerides 117 Cholesterol 111.35 LDL Cholesterol Direct 42 VLDL Cholesterol 23.0 HDL Cholesterol 32 L TSH 1.71 Impressions: Chest X-Ray 10/07/16 16:25 IMPRESSION: NO ACUTE RADIOGRAPHIC FINDING IN THE CHEST. Assessment & Plan - Diagnosis (1) Fever Qualifiers: Fever type: unspecified Qualified Code(s): R50.9 - Fever, unspecified Plan: Ct with IV fluids normal saline at 100cc/hr; Doxycycline 100 mg BID po; Flagyl 500 mg TID po; Tylenol 650 mgq6h prn po; f/u infectious work up. (2) Leukocytosis Qualifiers: Leukocytosis type: unspecified Qualified Code(s): D72.829 - Elevated white blood cell count, unspecified Is this a current diagnosis for this admission?: YesPlan: Ct with Doxycycline 100 mg BID po; Flagyl 500 mg TID po; F/u infectious work up ; f/u CBC daily. (3) Lumbago Is this a current diagnosis for this admission?: YesPlan: Ct with Oxycodone 10 mg TID prn po. (4) Insomnia Is this a current diagnosis for this admission?: YesPlan: Ct with Diazepam 5 mg qhs prn po; Ambien 5 mg qhs prn po. (5) DVT prophylaxis Is this a current diagnosis for this admission?: YesPlan: Ct with Lovenox 40 mg qd subcut; SCD. - Time Time Spent: 30 to 50 Minutes Smoking Cessation Education: 3 to 10 minutes Medications reviewed and adjusted accordingly: Yes Anticipated discharge: Home Within: within 36 hours
--- NOTE | 2016-10-08 16:43 | PDOC DISCHARGE SUMMARY ---
General - Admit/Disc Date/PCP Admission Date/Primary Care Provider: 10/07/16 22:23 ELY ALTMAN Discharge Date: 10/08/16 - Discharge Diagnosis (2) Leukocytosis Is this a current diagnosis for this admission?: Yes (3) Lumbago Is this a current diagnosis for this admission?: Yes (4) Insomnia Is this a current diagnosis for this admission?: Yes (5) DVT prophylaxis Is this a current diagnosis for this admission?: Yes - Additional Information Resuscitation Status: Full Code Home Medications: Diazepam [Diazepam] 1 tab PO QHS 10/07/16 Oxycodone HCl [Oxycodone HCl] 1 tab PO Q12HP PRN 10/07/16 Ibuprofen [Motrin 800 mg Tablet] 800 mg PO Q8H PRN 10/08/16 History of Present Illness History of Present Illness: AYSE HARRY is a 45 year old female with hx of low back pain, neck pain, rhinitis, Insomnia nd chronic smoker, who was in her baseline till about 5 days ago when she started having diarrhea and later fever with gen. body ache and she was seen at urgent care and WBC was 312.2 and was told she has an infection ; she had stool for C-difficilex1 that was negative. On account of fever of 103.2 at home and worsening of gen. body ache, she came to ER for evaluation and mgt. She denied headache, travel outside [facility] and contact with animals.She had vomiting x2 on day of admission and admitted to some weight loss. Denied cough, hemoptysis, chest pain, dysuria, frequency, abd. pain. Hospital Course Hospital Course: 45 yr old woman who was admitted at telemetry floor for fever with leukocytosis of unclear origin. She also also had diarrhea for days. She had stool for C.difficilex1 that is negative; more stools were sent for C. difficile. She had svereal blood cultures that are pending and had negative lumbar puncture.Blood samples were sent for Rickettsial diseases and Lyme disease and results are pending. Her white count has decreased from 17 to 12. She had IV fluids and Doxycycline and Flagyl. She is feeling better and will be discharged home today to follow up with PCP next week. Physical Exam Vital Signs: Temp Pulse Resp BP Pulse Ox 98.1 F 68 15 106/66 97 10/08/16 12:11 10/08/16 12:11 10/08/16 12:11 10/08/16 12:11 10/08/16 12:11 Intake & Output 10/07/16 10/08/16 10/09/16 06:59 06:59 06:59 Intake Total 644 870 Balance 644 870 General appearance: PRESENT: no acute distress, well-developed, well-nourished Head exam: PRESENT: atraumatic, normocephalic Eye exam: PRESENT: EOMI, PERRLA Ear exam: PRESENT: TM's normal bilaterally Mouth exam: PRESENT: moist, neck supple, tongue midline Neck exam: PRESENT: full ROM Respiratory exam: PRESENT: clear to auscultation caren, symmetrical Cardiovascular exam: PRESENT: +S1, +S2 Pulses: PRESENT: +2 pedal pulses bilateral GI/Abdominal exam: PRESENT: normal bowel sounds, soft Rectal exam: PRESENT: deferred Extremities exam: PRESENT: full ROM Musculoskeletal exam: PRESENT: full ROM Neurological exam: PRESENT: alert, awake, oriented to person, oriented to place , oriented to time, CN II-XII grossly intact Psychiatric exam: PRESENT: normal mood Results Laboratory Results: 10/08/16 05:09 10/08/16 05:09 10/08/16 10/08/16 10/08/16 05:09 05:09 05:09 WBC 12.2 H RBC 4.63 Hgb 12.5 Hct 40.2 MCV 87 MCH 26.9 L MCHC 31.0 L RDW 13.8 Plt Count 291 Seg Neutrophils % 76.0 Lymphocytes % 15.6 Monocytes % 7.9 Eosinophils % 0.1 Basophils % 0.4 Absolute Neutrophils 9.3 H Absolute Lymphocytes 1.9 Absolute Monocytes 1.0 Absolute Eosinophils 0.0 Absolute Basophils 0.1 Sodium 136.6 L Potassium 4.3 Chloride 103 Carbon Dioxide 25 Anion Gap 9 BUN 11 Creatinine 0.69 Est GFR ( Amer) > 60 Est GFR (Non-Af Amer) > 60 Glucose 99 Calcium 8.4 Total Bilirubin 0.4 AST 21 ALT 37 Alkaline Phosphatase 71 Total Protein 5.9 L Albumin 3.1 L Triglycerides 117 Cholesterol 111.35 LDL Cholesterol Direct 42 VLDL Cholesterol 23.0 HDL Cholesterol 32 L TSH 1.71 Impressions: Chest X-Ray 10/07/16 16:25 IMPRESSION: NO ACUTE RADIOGRAPHIC FINDING IN THE CHEST.
[2016-10-08 16:56] VITALS: BP 108/65
[2016-10-11 21:36] LABS: Q FEVER PHASE I AB Negative (Neg:<1:16); ROCKY MTN SPOTTED FEV IGG EIA Negative (Negative)
[2016-10-12 07:03] LABS: LYME DISEASE IGG AND IGM AB <0.91 ISR (0.00-0.90)
[2016-10-12 07:04] LABS: Q FEVER PHASE II AB Negative (Neg:<1:16)
== END 2016-10-08 18:00 | disposition home or self-care (01) ==
LOC: ER 13:32 → EH 20:18 → UNDOADMOB 20:18 → 5 21:55 → EH 21:55 → 5 22:23
PROVIDERS: ADMIT Internal Medicine; ATTEND Internal Medicine
PROC: 009U3ZX Drainage of Spinal Canal, Percutaneous Approach, Diagnostic (ICD-10-PCS; principal; 2016-10-07)
DX: D72.829 Elevated white blood cell count, unspecified (principal); M54.5 Low back pain; G47.00 Insomnia, unspecified; R11.10 Vomiting, unspecified; R63.4 Abnormal weight loss; R50.9 Fever, unspecified; M54.2 Cervicalgia; R52 Pain, unspecified; B99.9 Unspecified infectious disease; F17.200 Nicotine dependence, unspecified, uncomplicated; Z79.899 Other long term (current) drug therapy; Z79.891 Long term (current) use of opiate analgesic; Z98.51 Tubal ligation status; Z80.9 Family history of malignant neoplasm, unspecified; Z87.19 Personal history of other diseases of the digestive system
CPT/HCPCS: 93005; 99285; 96361; 96375; 96365; 96366; 36415 ×2; 87040; 87070; 87086; 87205; 82550; 83690; 84443; 85025 ×2; 85652; 89050; 82945; 84157; 86140; 80053 ×2; 81001; 80307; 82803; 83605; 86757; 80061; 87804; 86618 ×2; 86617 ×2; 71010; 93010; 62270; G0378 ×2; J3490 ×10; J2250; J1885; J1650; J2405; J7030; J3370

== ENCOUNTER 2016-11-03 13:48 | Emergency (ER) | payer MEDICAID ==
[2016-11-03 13:54] VITALS: BP 121/81
[2016-11-03] MEDS ORDERED: KETOROLAC TROMETHAMINE INJ/PF 30 MG/1 ML SDV IV ONE (14:25)
[2016-11-03] MEDS ORDERED: DIAZEPAM INJ 10 MG/2 ML DISP.SYRIN IV ONE (14:27)
--- NOTE | 2016-11-03 14:28 | ER Document Report ---
ED General - General Chief Complaint: Pain All Over Stated Complaint: FEVER Time Seen by Provider: 11/03/16 14:07 Mode of Arrival: Ambulatory Information source: Patient Notes: 45 yo female with hx/o chronic neck and back pain c/o achy pain all over her body, especially head and neck x 3 days. pt feels feverish with chills, feels very weak. denies any n/v/d. able to tolerate oral fluids. denies any recent travel or sick exposures. no recent outdoor activities, no insect/tick bites. pt was recently hospitalized for a similar pain event with leukocytosis with unclear etiology. pt had negative lumbar puncture, neg lyme and rickettesial screen. TRAVEL OUTSIDE OF THE [place] IN LAST 30 DAYS: No - HPI Onset/Duration: Gradual, Persistent Quality of pain: Achy Associated symptoms: Body/muscle aches, Chills, Fever, Headache Exacerbated by: Denies Relieved by: Denies Similar symptoms previously: Yes - Related Data Allergies/Adverse Reactions: cephalexin monohydrate [From Keflex] Allergy (Verified 11/03/16 13:55) rash Past Medical History - General Information source: Patient - Social History Smoking Status: Current Every Day Smoker Chew tobacco use (# tins/day): No Frequency of alcohol use: None Drug Abuse: Marijuana Lives with: Family Family History: Malignancy - father, lung cancer Patient has suicidal ideation: No Patient has homicidal ideation: No - Past Medical History Cardiac Medical History: Denies: Hx Coronary Artery Disease, Hx Heart Attack, Hx Hypertension Pulmonary Medical History: Reports: Hx Pneumonia - hx 7-8 years ago Denies: Hx Asthma, Hx Bronchitis, Hx COPD, Hx Tuberculosis Neurological Medical History: Denies: Hx Cerebrovascular Accident, Hx Seizures Endocrine Medical History: Denies: Hx Diabetes Mellitus Type 1, Hx Diabetes Mellitus Type 2 Renal/ Medical History: Denies: Hx Peritoneal Dialysis GI Medical History: Reports: Hx Gastroesophageal Reflux Disease. Denies: Hx Hiatal Hernia Musculoskeltal Medical History: Denies Hx Arthritis Psychiatric Medical History: Reports: Hx Anxiety Past Surgical History: Reports: Hx Breast Surgery, Hx Section - X1, Hx Tubal Ligation. Denies: Hx Hysterectomy, Hx Pacemaker - Immunizations Immunizations up to date: Yes Hx Diphtheria, Pertussis, Tetanus Vaccination: Yes Hx Pneumococcal Vaccination: 01/27/12 Review of Systems - Review of Systems Constitutional: See HPI, Chills, Fever, Malaise, Weakness, Weight loss EENT: No symptoms reported Cardiovascular: No symptoms reported Respiratory: No symptoms reported Gastrointestinal: No symptoms reported Genitourinary: No symptoms reported Female Genitourinary: No symptoms reported Musculoskeletal: No symptoms reported Skin: No symptoms reported Hematologic/Lymphatic: No symptoms reported Neurological/Psychological: No symptoms reported Physical Exam - Vital signs Vitals: Temp Pulse Resp BP Pulse Ox 98.1 F 92 18 121/81 99 11/03/16 13:51 11/03/16 13:51 11/03/16 13:51 11/03/16 13:51 11/03/16 13:51 Interpretation: Normal - General General appearance: Alert, Anxious In distress: Mild - HEENT Head: Normocephalic, Atraumatic Eyes: Normal Pupils: PERRL - Respiratory Respiratory status: No respiratory distress Chest status: Nontender Breath sounds: Normal Chest palpation: Normal - Cardiovascular Rhythm: Regular Heart sounds: Normal auscultation Murmur: No - Abdominal Inspection: Normal Distension: No distension Bowel sounds: Normal Tenderness: Nontender Organomegaly: No organomegaly - Back Back: Normal, Nontender - Extremities General upper extremity: Normal inspection, Nontender, Normal color, Normal ROM , Normal temperature General lower extremity: Normal inspection, Nontender, Normal color, Normal ROM , Normal temperature, Normal weight bearing. No: Maryjane's sign - Neurological Neuro grossly intact: Yes Cognition: Normal Orientation: AAOx4 Shayna Coma Scale Eye Opening: Spontaneous Shayna Coma Scale Verbal: Oriented [place] Coma Scale Motor: Obeys Commands [place] Coma Scale Total: 15 Speech: Normal Motor strength normal: LUE, RUE, LLE, RLE Sensory: Normal - Psychological Associated symptoms: Normal affect, Normal mood - Skin Skin Temperature: Warm Skin Moisture: Dry Skin Color: Normal Course - Re-evaluation Re-evalutation: 11/03/16 15:41 labs unremarkable. results reviewed with patient. unclear etiology of pain. pt is hemodynamically stable. pt is nontoxic. stable for discharge and close follow up with primary care. pt agreeable with plan - Vital Signs Vital signs: Temp Pulse Resp BP Pulse Ox 98.1 F 92 18 121/81 99 11/03/16 13:51 11/03/16 13:51 11/03/16 13:51 11/03/16 13:51 11/03/16 13:51 - Laboratory Result Diagrams: 11/03/16 14:30 11/03/16 14:30 Laboratory results interpreted by me: 11/03/16 11/03/16 14:30 14:30 RDW 14.2 H Glucose 123 H Discharge - Discharge Clinical Impression: Total body pain, Myalgia Condition: Stable Disposition: HOME, SELF-CARE Instructions: Myalagia (Muscle Pain) ([facility]), Ultram ([facility]), Steroid Medication Additional Instructions: Your labs are normal today The reason for your body pain is unclear Take medications as prescribed Follow up with your primary care tomorrow for further evaluation and treatment Prescriptions: Prednisone [Deltasone 10 mg Tablet] 10 mg PO ASDIR PRN #21 tablet PRN Reason: Tramadol HCl [Ultram 50 mg Tablet] 50 mg PO ASDIR PRN #20 tablet PRN Reason:
[2016-11-03 14:50] LABS: ABSOLUTE LYMPHOCYTES (AUTO) 1.7 10^3/uL (0.5-4.7); ABSOLUTE MONOCYTES (AUTO) 0.7 10^3/uL (0.1-1.4); ABSOLUTE NEUT (AUTO) 7.6 10^3/uL (1.7-8.2); BASOPHILS % (AUTO) 0.4 % (0-2); EOSINOPHILS % (AUTO) 0.2 % (0-6); HEMATOCRIT 41.2 % (36.0-47.0); HEMOGLOBIN 13.9 g/dL (12.0-15.5); HGB HCT DIFFERENCE 0.5; LYMPHOCYTES % (AUTO) 16.9 % (13-45); MEAN CORPUSCULAR HEMOGLOBIN 28.7 pg (27.0-33.4); MEAN CORPUSCULAR HGB CONC 33.8 g/dL (32.0-36.0); MEAN CORPUSCULAR VOLUME 85 fl (80-97); MONOCYTES % (AUTO) 7.2 % (3-13); RED BLOOD COUNT 4.84 10^6/uL (3.72-5.28); RED CELL DISTRIBUTION WIDTH 14.2 % (11.5-14.0); SEGMENTED NEUTROPHILS % (AUTO) 75.3 % (42-78); WHITE BLOOD COUNT 10.2 10^3/uL (4.0-10.5)
[2016-11-03 15:22] LABS: ALANINE AMINOTRANSFERASE 25 U/L (9-52); ALBUMIN 4.2 g/dL (3.5-5.0); ALKALINE PHOSPHATASE 67 U/L (38-126); ANION GAP 12 (5-19); ASPARTATE AMINO TRANSFERASE 23 U/L (14-36); BILIRUBIN,DIRECT 0.3 mg/dL (0.0-0.4); BILIRUBIN,TOTAL 0.5 mg/dL (0.2-1.3); BLOOD UREA NITROGEN 8 mg/dL (7-20); CALCIUM 8.8 mg/dL (8.4-10.2); CARBON DIOXIDE 27 mmol/L (22-30); CHLORIDE 101 mmol/L (98-107); CREATININE RESULT 0.71 mg/dL (0.52-1.25); GLUCOSE 123 mg/dL (75-110); POTASSIUM 3.8 mmol/L (3.6-5.0); SODIUM 139.7 mmol/L (137-145); TOTAL PROTEIN 7.3 g/dL (6.3-8.2)
== END 2016-11-03 16:10 | disposition home or self-care (01) ==
LOC: ER 13:48
DX: M79.1 Myalgia (principal); M54.2 Cervicalgia; R51 Headache; R53.1 Weakness; R50.9 Fever, unspecified; F17.200 Nicotine dependence, unspecified, uncomplicated; R63.4 Abnormal weight loss; Z68.1 Body mass index [BMI] 19.9 or less, adult; Z88.1 Allergy status to other antibiotic agents
CPT/HCPCS: 99283; 96374; 96375; 36415; 85025; 80053; J3360; J1885

== ENCOUNTER 2017-06-18 13:57 | Emergency (ER) | payer MEDICAID ==
[2017-06-18] MEDS ORDERED: ALBUTEROL SULFATE 0.083% NEB 2.5 MG/3 ML AMPUL NEB ONE (14:25)
--- NOTE | 2017-06-18 14:25 | ER Document Report ---
ED Respiratory Problem - General Mode of Arrival: Ambulatory Information source: Patient TRAVEL OUTSIDE OF THE [place] IN LAST 30 DAYS: No - HPI Patient complains to provider of: Cough, Hurts to breath Onset: Last week Sputum color: Green Associated symptoms: Other - see notes above - General Chief Complaint: Cough Stated Complaint: CONGESTION, COUGH Time Seen by Provider: 06/18/17 14:17 Notes: 46-year-old female presents to the ED complaining of productive cough with green sputum and pain with deep breathing that started last week. Patient additionally complains of malaise, but denies fever, vomiting, or sore throat. Patient reports to have used Delsym, Robitussin, and NyQuil to minimal relief. ( FRANKLIN SEYMOUR) - Related Data Allergies/Adverse Reactions: cephalexin monohydrate [From Keflex] Allergy (Verified 06/18/17 14:18) rash Past Medical History - General Information source: Patient - Social History Smoking Status: Current Every Day Smoker Chew tobacco use (# tins/day): No Frequency of alcohol use: None Drug Abuse: None Family History: Malignancy - father, lung cancer Patient has suicidal ideation: No Patient has homicidal ideation: No - Past Medical History Cardiac Medical History: Denies: Hx Coronary Artery Disease, Hx Heart Attack, Hx Hypertension Pulmonary Medical History: Reports: Hx Pneumonia - hx 7-8 years ago Denies: Hx Asthma, Hx Bronchitis, Hx COPD, Hx Tuberculosis Neurological Medical History: Denies: Hx Cerebrovascular Accident, Hx Seizures Endocrine Medical History: Denies: Hx Diabetes Mellitus Type 1, Hx Diabetes Mellitus Type 2 Renal/ Medical History: Denies: Hx Peritoneal Dialysis GI Medical History: Reports: Hx Gastroesophageal Reflux Disease. Denies: Hx Hiatal Hernia Musculoskeltal Medical History: Denies Hx Arthritis Psychiatric Medical History: Reports: Hx Anxiety Past Surgical History: Reports: Hx Breast Surgery, Hx Section - X1, Hx Tubal Ligation. Denies: Hx Hysterectomy, Hx Pacemaker - Immunizations Immunizations up to date: Yes Hx Diphtheria, Pertussis, Tetanus Vaccination: Yes Hx Pneumococcal Vaccination: 01/27/12 Review of Systems - Review of Systems Constitutional: See HPI, Malaise. denies: Fever EENT: No symptoms reported. denies: Throat pain Cardiovascular: No symptoms reported Respiratory: See HPI, Cough, Hurts to breathe, Sputum Gastrointestinal: No symptoms reported. denies: Vomiting Genitourinary: No symptoms reported Female Genitourinary: No symptoms reported Musculoskeletal: No symptoms reported Skin: No symptoms reported Hematologic/Lymphatic: No symptoms reported Neurological/Psychological: No symptoms reported -: Yes All other systems reviewed and negative Physical Exam - Vital signs Vitals: Temp Pulse Resp BP Pulse Ox 98.4 F 75 19 107/81 97 06/18/17 14:14 06/18/17 14:14 06/18/17 14:14 06/18/17 14:14 06/18/17 14:14 - Notes Notes: GENERAL: Alert, interacts well. No acute distress. HEAD: Normocephalic, atraumatic. EYES: Pupils equal, round, and reactive to light. Extraocular movements intact. ENT: Oral mucosa moist, tongue midline. NECK: Full range of motion. Supple. Trachea midline. LUNGS: Diffuse rhonchi. Expiratory wheezing anteriorly. No rales. No respiratory distress. HEART: Regular rate and rhythm. No murmurs, gallops, or rubs. ABDOMEN: Soft, non-tender. Non-distended. EXTREMITIES: Moves all 4 extremities spontaneously. No edema, radial pulses 2/4 bilaterally. No cyanosis. NEUROLOGICAL: Alert and oriented x3. Normal speech. PSYCH: Normal affect, normal mood. SKIN: Warm, dry, normal turgor. No rashes or lesions noted. (FRANKLIN SEYMOUR) Course - Re-evaluation Re-evalutation: 06/18/17 15:19 Chest x-ray negative, cough decreased after breathing treatment, patient will be prescribed albuterol inhaler and instructed on use. Patient will be discharged home, encouraged to use [id number] cough suppressants. (BETH STEPHENS) - Vital Signs Vital signs: Temp Pulse Resp BP Pulse Ox 98.4 F 96 20 108/85 98 06/18/17 15:31 06/18/17 15:31 06/18/17 15:31 06/18/17 15:31 06/18/17 15:31 Discharge - Discharge Clinical Impression: Acute wheezy bronchitis Condition: Stable Disposition: HOME, SELF-CARE Additional Instructions: Bronchitis with Bronchospasm (Wheezing) You have bronchitis with bronchospasm (wheezing). Sometimes people develop wheezing with a chest cold. This occurs either because of an underlying tendency toward asthma or because the virus itself irritates the bronchial tubes. This irritation causes cough, shortness of breath, and wheezing. Emergency treatment of bronchospasm may include adrenaline shots or bronchodilator aerosol. You may feel lightheaded and have a rapid pulse for an hour or two. Rest and get plenty of fluids. At home, we'll treat you with a bronchodilator inhaler. Corticosteroids may be required for some patients. Until you recover, avoid chemical fumes, dusts, pollens, and exercising in very cold or dry air. If you smoke, stop now! Most cases of bronchitis get better without antibiotics. Increase your fluid intake. A cool mist humidifier may make your lungs more comfortable. An expectorant (cough medicine that loosens phlegm) can help. Repeated episodes of bronchitis and bronchospasm may result in lung damage -- for example, chronic bronchitis, recurrent pneumonias, or emphysema. If you develop a fever, increased wheezing, chest pain, or severe shortness of breath, you should contact the doctor immediately. Prescriptions: Albuterol Sulfate [Proair HFA Inhalation Aerosol 8.5 gm MDI] 2 puff IH Q4HP PRN #1 mdi PRN Reason: Guaifenesin/Phenylephrine HCl [Guaifen Pe Tablet] 1 each PO BID #14 tab.sr.[id number] Referrals: ELY ALTMAN MD [ACTIVE STAFF] - Follow up as needed Scribe Attestation: 06/18/17 21:06 I personally performed the services described in the documentation, reviewed and edited the documentation which was dictated to the scribe in my presence, and it accurately records my words and actions. (BETH STEPHENS) Scribe Documentation - Scribe Written by Robert:: Robert Larkin, [id number] acting as scribe for :: Leticia
--- NOTE | 2017-06-18 14:40 | RADIOLOGY REPORT (SQ) ---
EXAM DESCRIPTION: CHEST PA/LAT COMPLETED DATE/TIME: 06/18/2017 2:32 pm REASON FOR STUDY: cough, sweats, SOB COMPARISON: Chest films 04/22/2016, 07/14/2016, 10/07/2016 EXAM PARAMETERS: NUMBER OF VIEWS: two views TECHNIQUE: Digital Frontal and Lateral radiographic views of the chest acquired. RADIATION DOSE: NA LIMITATIONS: none FINDINGS: LUNGS AND PLEURA: No opacities, masses or pneumothorax. No pleural effusion. MEDIASTINUM AND HILAR STRUCTURES: No masses or contour abnormalities. HEART AND VASCULAR STRUCTURES: Heart normal size. No evidence for failure. BONES: No acute findings. HARDWARE: GI barium FA today's OTHER: No other significant finding. IMPRESSION: NO SIGNIFICANT RADIOGRAPHIC FINDING IN THE CHEST. TECHNICAL DOCUMENTATION: JOB ID: [id number] [employer]- All Rights Reserved Reading location - IP/workstation name: [email or web address]
[2017-06-18 15:35] VITALS: BP 108/85
== END 2017-06-18 15:31 | disposition home or self-care (01) ==
LOC: ER 13:57
DX: J20.9 Acute bronchitis, unspecified (principal); R07.1 Chest pain on breathing; R53.81 Other malaise; F17.200 Nicotine dependence, unspecified, uncomplicated; Z88.1 Allergy status to other antibiotic agents; Z80.1 Family history of malignant neoplasm of trachea, bronchus and lung; Z87.01 Personal history of pneumonia (recurrent)
CPT/HCPCS: 71046; 94640; 99283

== ENCOUNTER → 2018-05-26 | Outpatient (CLI) | payer MEDICAID ==
--- NOTE | 2018-05-26 16:34 | WOMENS IMAGING REPORT ---
EXAM DESCRIPTION: BILAT SCREENING MAMMO W/CAD COMPLETED DATE/TIME: 05/26/2018 1:26 pm REASON FOR STUDY: Z12.31 SCREENING MAMMO Z12.31 ENCNTR SCREEN MAMMOGRAM FOR MALIGNANT NEOPLASM OF B RE COMPARISON: 2012, 2008 TECHNIQUE: Standard craniocaudal and mediolateral oblique views of each breast recorded using digita l acquisition. Additional "push-back" craniocaudal and mediolateral oblique images acquired. LIMITATIONS: None. FINDINGS: IMPLANTS: Bilateral subpectoral implants. Findings present which are benign by mammographic criteria. No suspicious masses, calcifications or architectural distortion. Read with the assistance of CAD. .[facility] - R2 Cenova Version 1.3 .[facility] - R2 Cenova Version 2.1 .[facility] - R2 Cenova Version 2.4 .[facility] - R2 Cenova Version 2.4 .[facility] - R2 Flexographic Press Set Up Operator Version 9.2 Benign mammographic findings may include one or more of the following: Smooth masses, popcorn/rim/co arse calcifications, asymmetries, post-procedure changes, and lesions with long-standing stability. IMPRESSION: BENIGN MAMMOGRAPHIC FINDINGS. BIRADS 2 BREAST DENSITY: c. The breasts are heterogeneously dense, which may obscure small masses. BIRAD: 2 BENIGN FINDING(S) RECOMMENDATION: ROUTINE SCREENING COMMENT: The patient has been notified of the results by letter per SA requirements. Additional no tification policies are in place for contacting patient with suspicious or incomplete findings. Quality ID #[id number]: The [employer] recommends an annual screening mammogram for women aged 40 years or over. This facility utilizes a reminder system to ensure that all patients receive reminder letters, and/or direct phone calls for appointments. This includes reminders for routine scr eening mammograms, diagnostic mammograms, or other Breast Imaging Interventions when appropriate. Th is patient will be placed in the appropriate reminder system. The [employer] (ACR) has developed recommendations for screening MRI of the breast s in certain patient populations, to be used in conjunction with mammography. Breast MRI surveillanc e may be appropriate for women with more than 20% lifetime risk of developing breast cancer as deter mined by genetic testing, significant family history of the disease, or history of mantle radiation f or Hodgkins Disease. ACR Practice Guidelines 2008. TECHNICAL DOCUMENTATION: FINDING NUMBER: (1) ASSESSMENT: (1) JOB ID: [id number] [employer] All Rights Reserved Reading location - IP/workstation name: [email or web address]
== END ==
LOC: WI 11:44
PROVIDERS: ATTEND Internal Medicine
DX: Z12.31 Encounter for screening mammogram for malignant neoplasm of breast (principal)
CPT/HCPCS: 77067

== ENCOUNTER 2019-07-02 09:44 | Emergency (ER) | payer MEDICAID ==
--- NOTE | 2019-07-02 10:15 | ER Document Report ---
HPI - HPI Onset/Duration: Gone - 3 days Context: Presents to the RTC for concerns about upper respiratory symptoms. Patient states symptoms started 3 days ago. Patient reports subjective fever, chills, body aches and runny nose. Patient denies any cough although does complain of some shortness of breath nausea and headache. Patient denies any abdominal pain but does report diarrhea. Patient is a former smoker quitting 6 months ago. Associated Symptoms: Nonproductive cough, Nausea Exacerbated by: Denies Relieved by: Denies Similar symptoms previously: Yes Recently seen / treated by doctor: No - ROS ROS below otherwise negative: Yes Systems Reviewed and Negative: Yes All other systems reviewed and negative - EENT EENT: REPORTS: Sore Throat, Nasal Drainage-Clear, Congestion - RESPIRATORY Respiratory: REPORTS: Coughing. DENIES: Trouble Breathing - GASTROINTESTINAL Gastrointestinal: REPORTS: Nausea, Patient vomiting - REPRODUCTIVE Reproductive: DENIES: : - DERM Skin Color: Normal Skin Problems: None Past Medical History - General Information source: Patient - Social History Smoking Status: Former Smoker Lives with: Family Family History: Malignancy Pulmonary Medical History: Reports: Hx Pneumonia - hx 7-8 years ago Denies: Hx Asthma, Hx Bronchitis, Hx COPD, Hx Tuberculosis Neurological Medical History: Denies: Hx Cerebrovascular Accident, Hx Seizures Endocrine Medical History: Denies: Hx Diabetes Mellitus Type 1, Hx Diabetes Mellitus Type 2 Renal/ Medical History: Denies: Hx Peritoneal Dialysis GI Medical History: Reports: Hx Gastroesophageal Reflux Disease. Denies: Hx Hiatal Hernia Musculoskeletal Medical History: Denies Hx Arthritis Psychiatric Medical History: Reports: Hx Anxiety Past Surgical History: Reports: Hx Breast Surgery, Hx Section - X1, Hx Tubal Ligation. Denies: Hx Hysterectomy, Hx Pacemaker - Immunizations Immunizations up to date: Yes Hx Diphtheria, Pertussis, Tetanus Vaccination: Yes Hx Pneumococcal Vaccination: 01/27/12 Vertical Provider Document - CONSTITUTIONAL Agree With Documented VS: Yes Exam Limitations: No Limitations General Appearance: WD/WN, No Apparent Distress Notes: Patient with tangential speech - INFECTION CONTROL TRAVEL OUTSIDE OF THE [place] IN LAST 30 DAYS: No - HEENT HEENT: Atraumatic, Normocephalic, Pharyngeal Tenderness. negative: Pharyngeal Exudate, Pharyngeal Erythema - NECK Neck: Normal Inspection, Supple. negative: Lymphadenopathy-Left, Lymphadenopathy-Right - RESPIRATORY Respiratory: Breath Sounds Normal, No Respiratory Distress, Chest Non-Tender - CARDIOVASCULAR Cardiovascular: Regular Rate, Regular Rhythm, No Murmur - BACK Back: Normal Inspection - MUSCULOSKELETAL/EXTREMETIES Musculoskeletal/Extremeties: MAEW - NEURO Level of Consciousness: Awake, Alert Motor/Sensory: No Motor Deficit - DERM Integumentary: Warm, Dry Course - Re-evaluation Re-evalutation: 07/02/19 10:34 The patient was evaluated during the global Covid 19 pandemic, and that diagnosis was suspected/considered upon their initial presentation. Their evaluation, treatment and testing was consistent with current guidelines for patients who present with complaints or symptoms that may be related to Covid 19. Patient's respirations even unlabored, patient nontoxic in appearance. Patient does acknowledge some anxiety although does not endorse any suicidal homicidal ideation. 07/02/19 12:02 Patient does not have any significant chronic medical condition such as d iabetes, immunosuppression, pulmonary disease or cardiovascular disease. Patient is not greater than 65 years of age or less than 2 years of age. Patient is not nor morbidly obese. Patient has not been in close contact with someone exposed to the coronavirus and does not work in a healthcare setting therefore patient will not have coronavirus testing although patient will be advised that it is possible that she does have symptoms consistent with the coronavirus. Decision to test was based on [facility] June 17 guidelines. - Laboratory Laboratory results interpreted by me: 07/02/19 12:02 Labs- Entire Visit 07/02/19 07/02/19 10:15 10:17 Influenza A (Rapid) NEGATIVE Influenza B (Rapid) NEGATIVE Group A Strep Rapid NEGATIVE Discharge - Discharge Clinical Impression: Sore throat, Nausea, Myalgia, covid 19 screening Condition: Stable Disposition: HOME, SELF-CARE Instructions: Myalagia (Muscle Pain) ([facility]), Sore Throat ([facility]), Viral Syndrome ([facility]) Additional Instructions: Return immediately for any new or worsening symptoms Followup with your primary care provider, call tomorrow to make a followup appointment We will call you with the results of your strep and flu test later today.
[2019-07-02 10:35] VITALS: BP 137/81
[2019-07-02 10:53] LABS: A TYPE INFLUENZA AG NEGATIVE (NEGATIVE); B INFLUENZA AG NEGATIVE (NEGATIVE)
== END 2019-07-02 13:22 | disposition home or self-care (01) ==
LOC: EDRDC 09:44
DX: J02.9 Acute pharyngitis, unspecified (principal); R11.0 Nausea; M79.10 Myalgia, unspecified site; R06.02 Shortness of breath; R51 Headache; R19.7 Diarrhea, unspecified; Z20.828 Contact with and (suspected) exposure to other viral communicable diseases; Z87.891 Personal history of nicotine dependence
CPT/HCPCS: 87070; 87804; 87880; 99211

== ENCOUNTER → 2019-09-26 | Outpatient (CLI) | payer MEDICAID ==
--- NOTE | 2019-09-26 09:49 | RADIOLOGY REPORT (SQ) ---
EXAM DESCRIPTION: LUMBAR SPINE COMPLETE IMAGES COMPLETED DATE/TIME: 09/26/2019 9:24 am REASON FOR STUDY: LBP M54.5 LOW BACK PAIN COMPARISON: 03/24/2011 NUMBER OF VIEWS: Five views including obliques. TECHNIQUE: AP, lateral, oblique, and sacral radiographic images acquired of the lumbar spine. LIMITATIONS: None. FINDINGS: MINERALIZATION: Normal. SEGMENTATION: Normal. No transitional anatomy. ALIGNMENT: Grade 1 anterolisthesis of L5 on S1. VERTEBRAE: Maintained height. No fracture or worrisome bone lesion. DISCS: Disc space narrowing at L4-L5 and L5-S1. POSTERIOR ELEMENTS: Bilateral pars defects at L5-S1. HARDWARE: None in the spine. PARASPINAL SOFT TISSUES: Normal. PELVIS: Intact as visualized. No fractures or worrisome bone lesions. SI joints intact. OTHER: No other significant finding. IMPRESSION: Grade 1 anterolisthesis of L5 on S1 with bilateral pars defects. This is best demonstra keenan on prior CT abdomen pelvis dated 03/20/2019. Disc degenerative disease at L4-L5 and L5-S1. TECHNICAL DOCUMENTATION: JOB ID: [id number] 2010 [employer]- All Rights Reserved Reading location - IP/workstation name: [email or web address]
== END ==
LOC: OD 09:06
PROVIDERS: ATTEND Nurse Practitioner Family
DX: M51.37 Other intervertebral disc degeneration, lumbosacral region (principal); M54.5 Low back pain
CPT/HCPCS: 72110

== ENCOUNTER 2020-02-11 12:48 | Observation (INO) | payer MEDICAID ==
--- NOTE | 2020-02-11 13:05 | ER Document Report ---
ED Medical Screen (RME) - General Chief Complaint: Altered Mental Status Stated Complaint: WEAKNESS Time Seen by Provider: 02/11/20 12:59 Mode of Arrival: Wheelchair Information source: Patient Notes: 49-year-old female presented to ED with altered mental status. At time she was able to answer questions appropriately at other times she had no idea what she was going on. She was speaking word salad at times. She was falling asleep repetitively. She had a glass of something she was drinking became very agitated when we took the glass away. O2 sat was 77 on room air we did get it up to 89 on 4 L before moving her to her room. She is now on a monitor in room 5 with blood work urine EKG and other testing to be started. I have greeted and performed a rapid initial assessment of this patient. A comprehensive ED assessment and evaluation of the patient, analysis of test results and completion of medical decision making process will be conducted by an additional ED providers. TRAVEL OUTSIDE OF THE [place] IN LAST 30 DAYS: No - Related Data Allergies/Adverse Reactions: cephalexin monohydrate [From Keflex] Allergy (Verified 03/20/19 19:47) rash Past Medical History Pulmonary Medical History: Reports: Hx Pneumonia - hx 7-8 years ago Denies: Hx Asthma, Hx Bronchitis, Hx COPD, Hx Tuberculosis Neurological Medical History: Denies: Hx Cerebrovascular Accident, Hx Seizures Endocrine Medical History: Denies: Hx Diabetes Mellitus Type 1, Hx Diabetes Mellitus Type 2 Renal/ Medical History: Denies: Hx Peritoneal Dialysis GI Medical History: Reports: Hx Gastroesophageal Reflux Disease. Denies: Hx Hiatal Hernia Musculoskeltal Medical History: Denies Hx Arthritis Psychiatric Medical History: Reports: Hx Anxiety Past Surgical History: Reports: Hx Breast Surgery, Hx Section - X1, Hx Tubal Ligation. Denies: Hx Hysterectomy, Hx Pacemaker - Immunizations Immunizations up to date: Yes Hx Diphtheria, Pertussis, Tetanus Vaccination: Yes Physical Exam - Vital signs Vitals: Temp Pulse Resp BP Pulse Ox 97.6 F 93 25 H 88/62 L 77 L 02/11/20 13:05 02/11/20 13:05 02/11/20 13:05 02/11/20 13:05 02/11/20 13:05 Course - Vital Signs Vital signs: Temp Pulse Resp BP Pulse Ox 97.8 F 64 16 94/68 L 99 02/11/20 17:01 02/11/20 20:42 02/11/20 20:42 02/11/20 20:00 02/11/20 20:42 - Laboratory Result Diagrams: 02/11/20 13:12 02/11/20 13:12 Laboratory results interpreted by me: 02/11/20 02/11/20 02/11/20 13:12 13:12 13:12 WBC 11.5 H RDW 14.1 H VBG pH 7.26 L VBG pCO2 72.4 H* Chloride 96 L Carbon Dioxide 33 H Est GFR (MDRD) Non-Af 50 L Lactic Acid Calcium 10.5 H Urine Protein Ur Leukocyte Esterase Salicylates < 1.0 L 02/11/20 02/11/20 13:12 14:43 WBC RDW VBG pH VBG pCO2 Chloride Carbon Dioxide Est GFR (MDRD) Non-Af Lactic Acid 0.5 L Calcium Urine Protein 30 H Ur Leukocyte Esterase TRACE H Salicylates Doctor's Discharge - Discharge Clinical Impression: Person under investigation for COVID-19, Hypoxia, Pneumonia Condition: Good Disposition: ADMITTED INPATIENT
--- NOTE | 2020-02-11 13:22 | ER Document Report ---
ED General - General Chief Complaint: Altered Mental Status Stated Complaint: WEAKNESS Time Seen by Provider: 02/11/20 12:59 Primary Care Provider: KIMBER RODRÍGUEZ FNP-C [Primary Care Provider] - Follow up as needed Mode of Arrival: Wheelchair Notes: 49-year-old female presented to ED with altered mental status. At time she was able to answer questions appropriately at other times she had no idea what she was going on. She was speaking word salad at times. She was falling asleep rep etitively. She had a glass of something she was drinking became very agitated when we took the glass away. O2 sat was 77 on room air we did get it up to 89 on 4 L before moving her to her room. She is now on a monitor in room 5 with blood work urine EKG and other testing to be started. Patient came with her boyfriend who is in room 8. Her sats were 77% on room air we did add oxygen. Patient is acting very bizarrely. Almost as if she is high or drunk. Will do tox screen CT her head and chest. Patient is very animated. Agitated. Denies any methamphetamine use. TRAVEL OUTSIDE OF THE [place] IN LAST 30 DAYS: No - Related Data Allergies/Adverse Reactions: cephalexin monohydrate [From [facility]] Allergy (Verified 03/20/19 19:47) rash Past Medical History - General Information source: Patient - Social History Smoking Status: Unknown if Ever Smoked Family History: Malignancy Pulmonary Medical History: Reports: Hx Pneumonia - hx 7-8 years ago Denies: Hx Asthma, Hx Bronchitis, Hx COPD, Hx Tuberculosis Neurological Medical History: Denies: Hx Cerebrovascular Accident, Hx Seizures Endocrine Medical History: Denies: Hx Diabetes Mellitus Type 1, Hx Diabetes Mellitus Type 2 Renal/ Medical History: Denies: Hx Peritoneal Dialysis GI Medical History: Reports: Hx Gastroesophageal Reflux Disease. Denies: Hx Hiatal Hernia Musculoskeletal Medical History: Denies Hx Arthritis Psychiatric Medical History: Reports: Hx Anxiety Past Surgical History: Reports: Hx Breast Surgery, Hx Section - X1, Hx Tubal Ligation. Denies: Hx Hysterectomy, Hx Pacemaker - Immunizations Immunizations up to date: Yes Hx Diphtheria, Pertussis, Tetanus Vaccination: Yes Hx Pneumococcal Vaccination: 01/27/12 Review of Systems - Review of Systems Constitutional: denies: Chills, Fever Respiratory: Cough, Short of breath Gastrointestinal: Nausea. denies: Vomiting Musculoskeletal: No symptoms reported Neurological/Psychological: Confusion -: Yes All other systems reviewed and negative Physical Exam - Vital signs Vitals: Temp Pulse Resp BP Pulse Ox 97.6 F 93 25 H 88/62 L 77 L 02/11/20 13:05 02/11/20 13:05 02/11/20 13:05 02/11/20 13:05 02/11/20 13:05 - Notes Notes: GENERAL_APPEARANCE: well_nourished very thin, alert, cooperative, stated rambling on VITALS: reviewed, see vital signs table. HEAD: no_swelling\tenderness on the head. EYES: PERRL, EOMI, conjunctiva_clear. NOSE: no_nasal_discharge. MOUTH: (-)decreased moisture. THROAT: no_tonsilar_inflammation, no_airway_obstruction. no_lymphadenopathy NECK: supple, no_neck_tenderness, (-)thyromegaly. BACK: no_back_tenderness. CHEST_WALL: no_chest_tenderness. LUNGS: Ant_wheezing, no_rales, no_rhonchi, (-)accessory muscle use, good air exchange bilateral. HEART: normal_rate, normal_rhythm, normal_S1, normal_S2, (-)S3, (-)S4, no_murmur, no_rub. ABDOMEN:soft, no_abd_tenderness, (-)guarding, (-)rebound, no_organomegaly, no_abd_masses. EXTREMITIES: good pulses in all_extremities, no_swelling\tenderness in the extremities, no_edema. SKIN: warm, dry, good_color, no_rash. MENTAL_STATUS: speech_clear, oriented_X to person and place but did not get the date right, normal_affect, responds_appropriately to questions. NEURO: Neg Motor or Sensory Deficits on exam, CN 2-12 intact, DTR 2+ symmetric x 4, No cerbellar signs Course - Re-evaluation Re-evalutation: 02/11/20 13:21 49-year-old female who arrives with altered mental status and some hypoxia. Patient is behaving as if she is intoxicated this may be due to the hypoxia is difficult to tell she is here with her boyfriend that is a PUI. 02/11/20 17:24 Patient is doing better. Drug screen was positive for opioids but they did not run the methamphetamine because of conflicting drugs but I really think that she may have done some methamphetamine. She has calm down after some Haldol. She is still hypoxic CTA shows some interstitial changes which could be Covid. We did give the patient some steroids and empiric Zosyn. Blood cultures are done I spoke with the hospitalist service she he will hospitalize the patient blood gas showed elevated PCO2 of 76. It is likely chronic retainer. - Vital Signs Vital signs: Temp Pulse Resp BP Pulse Ox 97.6 F 93 13 88/62 L 98 02/11/20 13:05 02/11/20 13:05 02/11/20 15:00 02/11/20 13:05 02/11/20 15:01 - Laboratory Result Diagrams: 02/11/20 13:12 02/11/20 13:12 Laboratory results interpreted by me: 02/11/20 02/11/20 02/11/20 13:12 13:12 13:12 WBC 11.5 H RDW 14.1 H VBG pH 7.26 L VBG pCO2 72.4 H* Chloride 96 L Carbon Dioxide 33 H Est GFR (MDRD) Non-Af 50 L Lactic Acid Calcium 10.5 H Urine Protein Ur Leukocyte Esterase Salicylates < 1.0 L 02/11/20 02/11/20 13:12 14:43 WBC RDW VBG pH VBG pCO2 Chloride Carbon Dioxide Est GFR (MDRD) Non-Af Lactic Acid 0.5 L Calcium Urine Protein 30 H Ur Leukocyte Esterase TRACE H Salicylates - Diagnostic Test Radiology reviewed: Reports reviewed Radiology results interpreted by me: 02/11/20 17:24 Chest X-Ray 02/11/20 13:01 IMPRESSION: 1. Hyperinflation of the lungs. No acute pulmonary findings. Head CT 02/11/20 13:01 IMPRESSION: 1. No acute intracranial abnormality. EVIDENCE OF ACUTE STROKE: NO Chest/Abdomen CTA 02/11/20 13:17 IMPRESSION: 1. No pulmonary emboli. 2. Mild bronchial wall thickening with subsegmental mucous plugs in the lower lobes - clinical correlation to exclude an infectious or inflammatory bronchitis is recommended. 3. Pneumobilia - does the patient have a history of prior sphincterotomy? - EKG Interpretation by Me EKG shows normal: Sinus rhythm Rate: Normal Rhythm: NSR Critical Care Note - Critical Care Note Total time excluding time spent on procedures (mins): 33 Discharge - Discharge Clinical Impression: Person under investigation for COVID-19, Hypoxia Pneumonia Qualifiers: Pneumonia type: due to unspecified organism Laterality: bilateral Lung location: unspecified part of lung Qualified Code(s): J18.9 - Pneumonia, unspecified organism Condition: Good Disposition: ADMITTED INPATIENT Admitting Provider: Berta (Hospitalist) Unit Admitted: IMCU Referrals: KIMBER RODRÍGUEZ FNP-C [Primary Care Provider] - Follow up as needed
[2020-02-11 13:29] LABS: VENOUS BLOOD HCO3 31.5 mmol/L (20-32); VENOUS BLOOD PH 7.26 (7.30-7.42)
[2020-02-11 13:35] LABS: ABSOLUTE EOSINOPHILS # (AUTO) 0.1 10^3/uL (0.0-0.6); ABSOLUTE MONOCYTES (AUTO) 1.2 10^3/uL (0.1-1.4); ABSOLUTE NEUT (AUTO) 6.1 10^3/uL (1.7-8.2); BASOPHILS % (AUTO) 0.3 % (0-2); EOSINOPHILS % (AUTO) 1.3 % (0-6); HEMATOCRIT 41.6 % (36.0-47.0); HEMOGLOBIN 13.7 g/dL (12.0-15.5); LYMPHOCYTES % (AUTO) 35.1 % (13-45); MEAN CORPUSCULAR HEMOGLOBIN 27.5 pg (27.0-33.4); MEAN CORPUSCULAR VOLUME 83 fl (80-97); MONOCYTES % (AUTO) 10.2 % (3-13); PLATELET COUNT 398 10^3/uL (150-450); RED CELL DISTRIBUTION WIDTH 14.1 % (11.5-14.0); SEGMENTED NEUTROPHILS % (AUTO) 53.1 % (42-78); TOTAL CELLS COUNTED % (AUTO) 100 %; VENOUS BLOOD PCO2 72.4 mmHg (35-63); WHITE BLOOD COUNT 11.5 10^3/uL (4.0-10.5)
--- NOTE | 2020-02-11 13:37 | RADIOLOGY REPORT (SQ) ---
EXAM DESCRIPTION: CHEST SINGLE VIEW IMAGES COMPLETED DATE/TIME: 02/11/2020 1:26 pm REASON FOR STUDY: Altered mental status O2 sat 77 on room air COMPARISON: 06/18/2017 EXAM PARAMETERS: NUMBER OF VIEWS: One view. TECHNIQUE: Single frontal radiographic view of the chest acquired. RADIATION DOSE: NA LIMITATIONS: None. FINDINGS: LUNGS AND PLEURA: Hyperinflation of the lungs. No opacities, masses or pneumothorax. No pleural effusion. MEDIASTINUM AND HILAR STRUCTURES: No masses. Contour normal. HEART AND VASCULAR STRUCTURES: Heart normal in size. Normal vasculature. BONES: No acute findings. HARDWARE: None in the chest. OTHER: Bilateral breast implants. IMPRESSION: 1. Hyperinflation of the lungs. No acute pulmonary findings. TECHNICAL DOCUMENTATION: JOB ID: [id number] 2010 [employer]- All Rights Reserved Reading location - IP/workstation name: [email or web address]
[2020-02-11 13:49] LABS: ALBUMIN 4.8 g/dL (3.5-5.0); ALKALINE PHOSPHATASE 82 U/L (38-126); ANION GAP 9 (5-19); ASPARTATE AMINO TRANSFERASE 30 U/L (14-36); BILIRUBIN,DIRECT 0.2 mg/dL (0.0-0.4); BILIRUBIN,TOTAL 0.4 mg/dL (0.2-1.3); BLOOD UREA NITROGEN 17 mg/dL (7-20); CALCIUM 10.5 mg/dL (8.4-10.2); CARBON DIOXIDE 33 mmol/L (22-30); CHLORIDE 96 mmol/L (98-107); CREATINE KINASE 71 U/L (30-135); GLUCOSE 96 mg/dL (75-110); POTASSIUM 4.2 mmol/L (3.6-5.0); TOTAL PROTEIN 7.7 g/dL (6.3-8.2)
[2020-02-11 13:50] LABS: ALCOHOL < 10 mg/dL (NONE DETECTED)
[2020-02-11 13:51] LABS: SALICYLATE < 1.0 mg/dL (2.0-20.0)
[2020-02-11] MEDS ORDERED: ONDANSETRON HCL INJ/PF 4 MG/2 ML SDV ONE (14:50)
[2020-02-11] MEDS ORDERED: ONDANSETRON HCL INJ/PF 4 MG/2 ML SDV IV ONE (14:53)
[2020-02-11 15:01] LABS: A TYPE INFLUENZA AG NEGATIVE (NEGATIVE); B INFLUENZA AG NEGATIVE (NEGATIVE)
[2020-02-11] MEDS ORDERED: HALOPERIDOL LACTATE INJ 5 MG/1 ML VIAL IV ONE (15:34)
[2020-02-11 15:35] LABS: APPEARANCE,URINE CLOUDY; BILIRUBIN,URINE NEGATIVE (NEGATIVE); CALCIUM OXALATE CRYSTALS,URINE FEW /HPF; COLOR,URINE YELLOW; GLUCOSE, URINE NEGATIVE (NEGATIVE); KETONES,URINE NEGATIVE (NEGATIVE); LEUKOCYTE ESTERASE,URINE TRACE (NEGATIVE); NITRITE,URINE NEGATIVE (NEGATIVE); PROTEIN,URINE 30 mg/dL (NEGATIVE); URINE SPECIFIC GRAVITY 1.018; UROBILINOGEN,URINE NEGATIVE mg/dL (<2.0)
[2020-02-11] MEDS ORDERED: DEXAMETHASONE SOD PHOS INJ 10 MG/1 ML VIAL IV ONE (15:35)
--- NOTE | 2020-02-11 15:38 | RADIOLOGY REPORT (SQ) ---
EXAM DESCRIPTION: CT HEAD WITHOUT IMAGES COMPLETED DATE/TIME: 02/11/2020 3:27 pm REASON FOR STUDY: Altered mental status O2 sat 77 on room air COMPARISON: None. TECHNIQUE: Axial images acquired through the brain without intravenous contrast. Images reviewed wi th bone, brain and subdural windows. Additional sagittal and coronal reconstructions were generated. Images stored on PACS. All CT scanners at this facility use dose modulation, iterative reconstruction, and/or weight based d osing when appropriate to reduce radiation dose to as low as reasonably achievable (ALARA). [facility]: Dose Right [facility]: CareDose [facility]: Dose Right [facility]: Teradose 4D [facility]: [address] RADIATION DOSE: CT Rad equipment meets quality standard of care and radiation dose reduction techniq ues were employed. CTDIvol: 53.2 mGy. DLP: 991 mGy-cm. LIMITATIONS: Motion artifact limits the examination. FINDINGS: VENTRICLES: Normal size and contour. CEREBRUM: No masses. No hemorrhage. No midline shift. No evidence for acute infarction. Normal gra y/white matter differentiation. No areas of low density in the white matter. CEREBELLUM: No masses. No hemorrhage. No alteration of density. No evidence for acute infarction. EXTRAAXIAL SPACES: No fluid collections. No masses. ORBITS AND GLOBE: No intra- or extraconal masses. Normal contour of globe without masses. CALVARIUM: No fracture. PARANASAL SINUSES: No fluid or mucosal thickening. SOFT TISSUES: No mass or hematoma. OTHER: No other significant finding. IMPRESSION: 1. No acute intracranial abnormality. EVIDENCE OF ACUTE STROKE: NO COMMENT: Quality ID # [id number]: Final reports with documentation of one or more dose reduction techniques (e.g., Automated exposure control, adjustment of the mA and/or kV according to patient size, use of iterative reconstruction technique) TECHNICAL DOCUMENTATION: JOB ID: [id number] 2010 [employer]- All Rights Reserved Reading location - IP/workstation name: [email or web address]
[2020-02-11 15:44] LABS: URINE BARBITURATES SCREEN NEGATIVE; URINE BENZODIAZEPINES SCREEN NEGATIVE; URINE COCAINE SCREEN NEGATIVE; URINE MARIJUANA (THC) SCREEN NEGATIVE; URINE METHADONE SCREEN NEGATIVE; URINE PHENCYCLIDINE SCREEN NEGATIVE
--- NOTE | 2020-02-11 15:52 | RADIOLOGY REPORT (SQ) ---
EXAM DESCRIPTION: CTA CHEST IMAGES COMPLETED DATE/TIME: 02/11/2020 3:27 pm REASON FOR STUDY: AMS SOB COMPARISON: AP view of the chest from 02/11/2020. TECHNIQUE: CT scan of the chest performed using helical scanning technique with dynamic intravenous contrast injection. Images reviewed with lung, soft tissue and bone windows. Reconstructed coronal and sagittal MPR images reviewed. Additional 3 dimensional post-processing performed to develop Maximal Intensity Projection images (WI P). All images stored on PACS. All CT scanners at this facility use dose modulation, iterative reconstruction, and/or weight based d osing when appropriate to reduce radiation dose to as low as reasonably achievable (ALARA). [facility]: Dose Right [facility]: CareDose [facility]: Dose Right [facility]: Teradose 4D [facility]: [employer] CONTRAST TYPE AND DOSE: Contrast/concentration: Isovue 350.00 mmol/ml; Total Contrast Delivered: 65. 0 ml; Total Saline Delivered: 40.0 ml Contrast bolus optimized for the pulmonary arteries. RENAL FUNCTION: Creatinine 1.15 milligrams/deciliter. RADIATION DOSE: CT Rad equipment meets quality standard of care and radiation dose reduction techniq ues were employed. CTDIvol: 9.9 - 29.8 mGy. DLP: 1166 mGy-cm. LIMITATIONS: None. FINDINGS: LUNGS AND PLEURA: The trachea main bronchi are patent. There is mild bronchial wall thick ening with subsegmental mucous plugs in the lower lobes (for reference refer to image 71 of series 4) . There is no associated consolidation, atelectasis, nodularity, pleural effusion or pneumothorax. AORTA AND GREAT VESSELS: No aneurysm or dissection of the thoracic aorta. HEART: No pericardial effusion. No cardiomegaly. PULMONARY ARTERIES: No emboli. HILAR AND MEDIASTINAL STRUCTURES: No adenopathy or mass HARDWARE: None in the chest. UPPER ABDOMEN: Pneumobilia. THYROID AND OTHER SOFT TISSUES: No adenopathy or mass. BONES: No fracture or osseous lesion. 3D MIPS: Confirm above findings. OTHER: No other findings. IMPRESSION: 1. No pulmonary emboli. 2. Mild bronchial wall thickening with subsegmental mucous plugs in the lower lobes - clinical corre lation to exclude an infectious or inflammatory bronchitis is recommended. 3. Pneumobilia - does the patient have a history of prior sphincterotomy? COMMENT: Quality ID # [id number]: Final reports with documentation of one or more dose reduction techniques (e.g., Automated exposure control, adjustment of the mA and/or kV according to patient size, use of iterative reconstruction technique) TECHNICAL DOCUMENTATION: JOB ID: [id number] 2010 [employer]- All Rights Reserved Reading location - IP/workstation name: [email or web address]
--- NOTE | 2020-02-11 15:52 | EKG REPORT ---
SEVERITY:- NORMAL ECG - SINUS RHYTHM : Confirmed by: Veronica Buckley MD 11-Feb-2020 15:51:00
[2020-02-11] MEDS ORDERED: PIPERACILLIN/TAZOBACTAM 3.375 GM VIAL IV ONE (17:09)
[2020-02-11] MEDS ORDERED: PROMETHAZINE HCL INJ 25 MG/1 ML VIAL IV PRN (18:11)
[2020-02-11] MEDS ORDERED: OXYCODONE-ACETAMINOPHEN 5-325 MG TABLET PO PRN (18:11)
[2020-02-11] MEDS ORDERED: ACETAMINOPHEN 325 MG TABLET PO PRN (18:11)
[2020-02-11] MEDS ORDERED: ONDANSETRON HCL INJ/PF 4 MG/2 ML SDV IV PRN (18:11)
[2020-02-11] MEDS ORDERED: AZITHROMYCIN 250 MG TABLET PO ONE (18:11)
[2020-02-11] MEDS ORDERED: TEMAZEPAM 7.5 MG CAPSULE PO PRN (18:11)
[2020-02-11] MEDS ORDERED: IPRATROPIUM/ALBUTEROL 0.5-2.5 MG/3 ML AMPUL NEB PRN (18:11)
[2020-02-11] MEDS ORDERED: MAGNESIUM HYDROXIDE SUSP 30 ML UDCUP PO PRN (18:11)
--- NOTE | 2020-02-11 18:11 | PDOC H&P ---
History of Present Illness Admission Date/PCP: TIFFANIE RAY History of Present Illness: AYSE HARRY is a 49 year old female medical history of GERD, anxiety, chronic back pain with opioid dependency, who was brought to ED by EMS along with her boyfriend for altered mental status. Patient was noted to be acting bizarrely, very animated and agitated as per ED physician evaluation, patient was noted to be hypoxic on room air, CT head was negative, CTA chest showed no PE, mild bronchial wall thickening with subsegmental mucus plugging in the lower lobes patient was started on broad-spectrum IV antibiotics, and Haldol for agitation, started on supplemental oxygen and dexamethasone tested for Covid and hospitalist was consulted for admission. On my encounter patient comfortably sleeping, easily arousable, pleasant and compliant with physical examination, answers questions appropriately, patient is stating that she and her boyfriend have been feeling flulike symptoms for a week, been having nonproductive cough, fever, chills, nausea, vomiting and diarrhea, stating that she has not been exposed to Covid or anybody with similar system, denies any recent travel. She denies any chest pain, headache, numbness, tingling, focal neurological symptoms, auditory or visual hallucinations. Urine tox positive for opiates. Past Medical History Pulmonary Medical History: Reports: Pneumonia - hx 7-8 years ago Denies: Asthma, Bronchitis, Chronic Obstructive Pulmonary Disease (COPD), Tuberculosis Neurological Medical History: Denies: Seizures Endocrine Medical History: Denies: Diabetes Mellitus Type 1, Diabetes Mellitus Type 2 GI Medical History: Reports: Gastroesophageal Reflux Disease Denies: Hiatal Hernia Musculoskeltal Medical History: Denies: Arthritis Hematology: Denies: Anemia Past Surgical History Past Surgical History: Reports: Section - X1, Tubal Ligation Denies: Hysterectomy, Pacemaker Social History Smoking Status: Unknown if Ever Smoked Frequency of Alcohol Use: None Hx Recreational Drug Use: No Drugs: Marijuana Hx Prescription Drug Abuse: No Family History Family History: Malignancy Parental Family History Reviewed: Yes Children Family History Reviewed: Yes Sibling(s) Family History Reviewed.: Yes Medication/Allergy Home Medications: Diazepam 1 tab PO QHS 10/07/16 Oxycodone HCl 1 tab PO Q12HP PRN 10/07/16 Albuterol Sulfate [Proair HFA Inhalation Aerosol 8.5 gm MDI] 2 puff IH Q4HP PRN #1 mdi 06/18/17 Guaifenesin/Phenylephrine HCl [Guaifen Pe Tablet] 1 each PO BID #14 tab.sr.12h 06/18/17 Tramadol HCl [Ultram 50 mg Tablet] 50 mg PO Q4HP PRN #12 tab 03/21/19 Allergies/Adverse Reactions: cephalexin monohydrate [From [employer]] Allergy (Verified 03/20/19 19:47) rash Review of Systems Review of Systems: as per hpi Physical Exam Vital Signs: Temp Pulse Resp BP Pulse Ox 97.6 F 93 13 88/62 L 98 02/11/20 13:05 02/11/20 13:05 02/11/20 15:00 02/11/20 13:05 02/11/20 15:01 Intake & Output 02/10/20 02/11/20 02/12/20 06:59 06:59 06:59 Weight 43 kg General appearance: PRESENT: no acute distress, thin, well-developed, well- nourished Head exam: PRESENT: atraumatic, normocephalic Respiratory exam: PRESENT: clear to auscultation caren, tachypnea. ABSENT: rales, rhonchi, wheezes Cardiovascular exam: PRESENT: RRR. ABSENT: diastolic murmur, rubs, systolic murmur GI/Abdominal exam: PRESENT: normal bowel sounds, soft. ABSENT: distended, guarding, mass, organolmegaly, rebound, tenderness Extremities exam: PRESENT: full ROM. ABSENT: calf tenderness, clubbing, pedal edema Neurological exam: PRESENT: alert, awake, oriented to person, oriented to place, oriented to time, oriented to situation, CN II-XII grossly intact. ABSENT: motor sensory deficit Psychiatric exam: PRESENT: anxious Focused psych exam: PRESENT: restlessness Skin exam: PRESENT: dry, intact, warm. ABSENT: cyanosis, rash Results Laboratory Results: 02/11/20 13:12 02/11/20 13:12 02/11/20 02/11/20 02/11/20 13:12 13:12 13:12 WBC 11.5 H RBC 5.00 Hgb 13.7 Hct 41.6 MCV 83 MCH 27.5 MCHC 33.0 RDW 14.1 H Plt Count 398 Seg Neutrophils % 53.1 VBG pH 7.26 L VBG pCO2 72.4 H* VBG HCO3 31.5 VBG Base Excess 2.0 Sodium 137.9 Potassium 4.2 Chloride 96 L Carbon Dioxide 33 H Anion Gap 9 BUN 17 Creatinine 1.15 Est GFR ( Amer) > 60 Glucose 96 Lactic Acid Calcium 10.5 H Magnesium 1.9 Total Bilirubin 0.4 AST 30 Alkaline Phosphatase 82 Total Protein 7.7 Albumin 4.8 Urine Color Urine Appearance Urine pH Ur Specific [place] Urine Protein Urine Glucose (UA) Urine Ketones Urine Blood Urine Nitrite Ur Leukocyte Esterase Urine WBC (Auto) Urine RBC (Auto) 02/11/20 02/11/20 13:12 14:43 WBC RBC Hgb Hct MCV MCH MCHC RDW Plt Count Seg Neutrophils % VBG pH VBG pCO2 VBG HCO3 VBG Base Excess Sodium Potassium Chloride Carbon Dioxide Anion Gap BUN Creatinine Est GFR ( Amer) Glucose Lactic Acid 0.5 L Calcium Magnesium Total Bilirubin AST Alkaline Phosphatase Total Protein Albumin Urine Color YELLOW Urine Appearance CLOUDY Urine pH 5.0 Ur Specific [place] 1.018 Urine Protein 30 H Urine Glucose (UA) NEGATIVE Urine Ketones NEGATIVE Urine Blood NEGATIVE Urine Nitrite NEGATIVE Ur Leukocyte Esterase TRACE H Urine WBC (Auto) 10 Urine RBC (Auto) 2 02/11/20 02/11/20 13:12 13:12 Creatine Kinase 71 Troponin I < 0.012 Impressions: Chest X-Ray 02/11/20 13:01 IMPRESSION: 1. Hyperinflation of the lungs. No acute pulmonary findings. Head CT 02/11/20 13:01 IMPRESSION: 1. No acute intracranial abnormality. EVIDENCE OF ACUTE STROKE: NO Chest/Abdomen CTA 02/11/20 13:17 IMPRESSION: 1. No pulmonary emboli. 2. Mild bronchial wall thickening with subsegmental mucous plugs in the lower lobes - clinical correlation to exclude an infectious or inflammatory bronchitis is recommended. 3. Pneumobilia - does the patient have a history of prior sphincterotomy? Assessment and Plan - Diagnosis (1) Acute respiratory failure with hypoxia Is this a current diagnosis for this admission?: Yes Plan: Complaining of flulike symptoms for the last 1 week. Denies any exposure to anybody with similar symptoms, denies any exposure to anybody with COVID-19 infection. Mild leukocytosis. Hypoxic on room air. Influenza A/B negative. Likely COVID-19 infection or influenza complicated by underlying history of COPD. Patient boyfriend who is also hospitalized has similar symptoms. Admit to IMCU, empiric broad-spectrum IV antibiotics, check for COVID-19, DuoNebs, as needed BiPAP, supplemental oxygen, dexamethasone. If positive for COVID-19 or worsening symptoms we will consider remdesivir and convalescent plasma. (2) Flu-like symptoms Is this a current diagnosis for this admission?: Yes Plan: As per #1. (3) Opiate dependence Is this a current diagnosis for this admission?: Yes Plan: Takes opioids for chronic back pain. Resume home meds. Monitor procedure description. Outpatient PCP and pain management follow-up. (4) Person under investigation for COVID-19 Is this a current diagnosis for this admission?: Yes Plan: As per #1. (5) COPD (chronic obstructive pulmonary disease) Qualifiers: COPD type: COPD with acute exacerbation Qualified Code(s): J44.1 - Chronic obstructive pulmonary disease with (acute) exacerbation Is this a current diagnosis for this admission?: Yes Plan: History of nonoxygen dependent COPD. DuoNebs, supplemental oxygen, LAMA, LABA, ICS, flutter valve, incentive spirometry. (6) Acute metabolic encephalopathy Is this a current diagnosis for this admission?: Yes Plan: CT head negative. Urine tox positive for opiates. Patient's home medications are opiates for chronic back pain. Denies any recreational drug abuse. Likely due to hypoxia. Supportive measures. Fall, aspiration and seizure precautions. - Time Time Spent with patient: 35 or more minutes Medications reviewed and adjusted accordingly: Yes Anticipated Discharge Disposition: Home, Self Care Anticipated Discharge Timeframe: within 72 hours
[2020-02-11] MEDS ORDERED: LABETALOL HCL INJ 20 MG/4 ML DISP.SYRIN IV PRN (18:16)
[2020-02-11] MEDS ORDERED: LORAZEPAM 1 MG TABLET PO PRN (18:16)
[2020-02-11 19:05] LABS: INTERNATIONAL RATION (INR) 0.91; PROTHROMBIN TIME 12.5 SEC (11.4-15.4)
[2020-02-11 19:06] LABS: FIBRINOGEN 415 mg/dL (209-497)
[2020-02-11 19:08] LABS: D-DIMER 0.35 ug/mL (0.00-0.50)
[2020-02-11 19:46] LABS: C-REACTIVE PROTEIN < 5.0 mg/L (<10.0)
[2020-02-11] MEDS: IPRATROPIUM/ALBUTEROL 0.5-2.5 MG/3 ML AMPUL NEB SCH (20:42)
[2020-02-12] MEDS: NORMAL SALINE 1000 ML 1,000 ML IV PRN ×2 (00:18→08:38)
[2020-02-12] MEDS ORDERED: PANTOPRAZOLE SODIUM 40 MG TABLET.DR PO SCH (06:00)
[2020-02-12 07:44] LABS: ABSOLUTE LYMPHOCYTES (AUTO) 1.2 10^3/uL (0.5-4.7); ABSOLUTE MONOCYTES (AUTO) 0.4 10^3/uL (0.1-1.4); ABSOLUTE NEUT (AUTO) 5.4 10^3/uL (1.7-8.2); BASOPHILS % (AUTO) 0.1 % (0-2); HEMATOCRIT 35.7 % (36.0-47.0); HEMOGLOBIN 11.9 g/dL (12.0-15.5); LYMPHOCYTES % (AUTO) 16.9 % (13-45); MEAN CORPUSCULAR HEMOGLOBIN 27.8 pg (27.0-33.4); MEAN CORPUSCULAR HGB CONC 33.3 g/dL (32.0-36.0); MEAN CORPUSCULAR VOLUME 83 fl (80-97); MONOCYTES % (AUTO) 5.8 % (3-13); PLATELET COUNT 343 10^3/uL (150-450); RED BLOOD COUNT 4.28 10^6/uL (3.72-5.28); RED CELL DISTRIBUTION WIDTH 13.9 % (11.5-14.0); SEGMENTED NEUTROPHILS % (AUTO) 77.2 % (42-78); TOTAL CELLS COUNTED % (AUTO) 100 %
[2020-02-12 07:58] LABS: ALBUMIN 3.4 g/dL (3.5-5.0); ALKALINE PHOSPHATASE 62 U/L (38-126); ANION GAP 10 (5-19); ASPARTATE AMINO TRANSFERASE 21 U/L (14-36); BILIRUBIN,DIRECT 0.1 mg/dL (0.0-0.4); BILIRUBIN,TOTAL 0.2 mg/dL (0.2-1.3); BLOOD UREA NITROGEN 22 mg/dL (7-20); CALCIUM 9.3 mg/dL (8.4-10.2); CARBON DIOXIDE 26 mmol/L (22-30); CHLORIDE 99 mmol/L (98-107); GLUCOSE 144 mg/dL (75-110); POTASSIUM 4.5 mmol/L (3.6-5.0); TOTAL PROTEIN 5.9 g/dL (6.3-8.2)
[2020-02-12] MEDS: IPRATROPIUM/ALBUTEROL 0.5-2.5 MG/3 ML AMPUL NEB SCH ×3 (09:10→22:46)
[2020-02-12] MEDS ORDERED: ZINC SULFATE 220 MG CAPSULE PO SCH (10:00)
[2020-02-12] MEDS ORDERED: ENOXAPARIN SODIUM INJ 40 MG/0.4 ML DISP.SYRIN SUBCUT SCH (10:00)
[2020-02-12] MEDS ORDERED: CHOLECALCIFEROL (D3) 1,000 UNIT (25 MCG) TABLET PO SCH (10:00)
[2020-02-12] MEDS ORDERED: AZITHROMYCIN 250 MG TABLET PO SCH (10:00)
[2020-02-12] MEDS ORDERED: DEXAMETHASONE SOD PHOS INJ 10 MG/1 ML VIAL IV SCH (10:00)
[2020-02-12] MEDS ORDERED: ASCORBIC ACID 500 MG TABLET PO SCH (10:00)
[2020-02-12 11:24] VITALS: BP 128/66
[2020-02-12 13:17] LABS: VENOUS BLOOD BASE EXCESS -4.4 mmol/L; VENOUS BLOOD PCO2 51.7 mmHg (35-63); VENOUS BLOOD PH 7.27 (7.30-7.42)
--- NOTE | 2020-02-12 21:06 | PDOC DISCHARGE SUMMARY ---
Impression - Admit/DC Date/PCP Admission Date/Primary Care Provider: 02/11/20 17:56 JAMIE RAY-Cliff Discharge Date: 02/12/20 - Discharge Diagnosis (1) Acute respiratory failure with hypoxia Is this a current diagnosis for this admission?: Yes (2) Person under investigation for COVID-19 Is this a current diagnosis for this admission?: Yes (3) MIRTA (acute kidney injury) Is this a current diagnosis for this admission?: Yes (4) Dehydration Is this a current diagnosis for this admission?: Yes (5) URI (upper respiratory infection) Is this a current diagnosis for this admission?: Yes (6) Nausea & vomiting Is this a current diagnosis for this admission?: Yes (7) Diarrhea Is this a current diagnosis for this admission?: Yes - Assessment Summary: AYSE HARRY is a 49 year old female medical history of GERD, anxiety, chronic back pain with opioid dependence who was brought to ED by EMS on 02/11/2020 along with her boyfriend for altered mental status. Patient was noted to be acting bizarrely, very animated and agitated as per ED physician evaluation, and was noted to be hypoxic on room air. CT head was negative, CTA chest showed no PE, mild bronchial wall thickening with subsegmental mucus plugging in the lower lobes. Patient was started on broad-spectrum IV antibiotics, and Haldol for agitation, started on supplemental oxygen and dexamethasone. Due to suspicion of COVID-19 infection, she was tested for Covid and hospitalist service was consulted for admission. The patient reported that both she and her boyfriend have been feeling flu-like symptoms for a week, having nonproductive cough, fever, chills, nausea, vomiting and diarrhea. She has no known exposes to Covid or anybody with similar system, denies any recent travel. She denies any chest pain, headache, numbness, tingling, focal neurological symptoms, auditory or visual hallucinations. Urine tox positive for opiates. Her boyfriend reportedly tested negative for Covid on the day of her admission. The patient herself was no longer altered by the time of admission from the ED. She was started on treatment with oxygen, steroids and IVF. She had an unexpectedly rapid improvement in her symptoms and resolution of her hypoxemia by 02/12/2020. She had a normal ambulatory saturation and felt quite well after IVF resuscitation, and requested to be discharged home. She was felt to be safe for discharge, but was counseled on length on the importance of quarantining at home until the results of her COVID-19 test return. - Additional Information Discharge Diet: Regular Discharge Activity: Activity As Tolerated Referrals: ELY ALTMAN MD [ACTIVE STAFF] - KIMBER RODRÍGUEZ FNP-C [Primary Care Provider] - Follow up as needed Home Medications: Albuterol Sulfate [Proair HFA Inhalation Aerosol 8.5 gm MDI] 2 puff IH Q4HP PRN #1 mdi 06/18/17 Alprazolam [Xanax] 0.5 mg PO BIDP PRN 02/11/20 Promethazine HCl [Phenergan 25 mg Tablet] 25 mg PO TIDP PRN 02/11/20 History of Present Illiness History of Present Illness: AYSE HARRY is a 49 year old female Physical Exam Vital Signs: Temp Pulse Resp BP Pulse Ox 98.7 F 71 16 110/70 94 02/12/20 06:00 02/12/20 09:10 02/12/20 09:10 02/12/20 06:00 02/12/20 09:10 Intake & Output 02/11/20 02/12/20 02/13/20 06:59 06:59 06:59 Intake Total 1999 Balance 1999 Weight 43 kg Results Laboratory Results: WBC 7.0 10^3/uL (4.0-10.5) 02/12/20 07:01 RBC 4.28 10^6/uL (3.72-5.28) 02/12/20 07:01 Hgb 11.9 g/dL (12.0-15.5) L 02/12/20 07:01 Hct 35.7 % (36.0-47.0) L 02/12/20 07:01 MCV 83 fl (80-97) 02/12/20 07:01 MCH 27.8 pg (27.0-33.4) 02/12/20 07:01 MCHC 33.3 g/dL (32.0-36.0) 02/12/20 07:01 RDW 13.9 % (11.5-14.0) 02/12/20 07:01 Plt Count 343 10^3/uL (150-450) 02/12/20 07:01 Lymph % (Auto) 16.9 % (13-45) 02/12/20 07:01 [place] % (Auto) 5.8 % (3-13) 02/12/20 07:01 Eos % (Auto) 0.0 % (0-6) 02/12/20 07:01 Baso % (Auto) 0.1 % (0-2) 02/12/20 07:01 Absolute Neuts (auto) 5.4 10^3/uL (1.7-8.2) 02/12/20 07:01 Absolute Lymphs (auto) 1.2 10^3/uL (0.5-4.7) 02/12/20 07:01 Absolute Monos (auto) 0.4 10^3/uL (0.1-1.4) 02/12/20 07:01 Absolute Eos (auto) 0.0 10^3/uL (0.0-0.6) 02/12/20 07:01 Absolute Basos (auto) 0.0 10^3/uL (0.0-0.2) 02/12/20 07:01 Seg Neutrophils % 77.2 % (42-78) 02/12/20 07:01 PT 12.5 SEC (11.4-15.4) 02/11/20 13:12 INR 0.91 02/11/20 13:12 Fibrinogen 415 mg/dL (209-497) 02/11/20 13:12 D-Dimer 0.35 ug/mL (0.00-0.50) 02/11/20 13:12 VBG pH 7.27 (7.30-7.42) L 02/12/20 13:05 VBG pCO2 51.7 mmHg (35-63) 02/12/20 13:05 VBG HCO3 23.0 mmol/L (20-32) 02/12/20 13:05 VBG Base Excess -4.4 mmol/L 02/12/20 13:05 Sodium 134.7 mmol/L (137-145) L 02/12/20 07:01 Potassium 4.5 mmol/L (3.6-5.0) 02/12/20 07:01 Chloride 99 mmol/L (98-107) 02/12/20 07:01 Carbon Dioxide 26 mmol/L (22-30) 02/12/20 07:01 Anion Gap 10 (5-19) 02/12/20 07:01 BUN 22 mg/dL (7-20) H 02/12/20 07:01 Creatinine 0.68 mg/dL (0.52-1.25) 02/12/20 07:01 Est GFR ( Amer) > 60 (>60) 02/12/20 07:01 Est GFR (MDRD) Non-Af > 60 (>60) 02/12/20 07:01 Glucose 144 mg/dL (75-110) H 02/12/20 07:01 Lactic Acid 0.5 mmol/L (0.7-2.1) L 02/11/20 13:12 Calcium 9.3 mg/dL (8.4-10.2) 02/12/20 07:01 Magnesium 1.9 mg/dL (1.6-2.3) 02/11/20 13:12 Ferritin 42.60 ng/mL (11.1-264.0) 02/11/20 13:12 Total Bilirubin 0.2 mg/dL (0.2-1.3) 02/12/20 07:01 Direct Bilirubin 0.1 mg/dL (0.0-0.4) 02/12/20 07:01 Neonat Total Bilirubin Not Reportable 02/12/20 07:01 Neonat Direct Bilirubin Not Reportable 02/12/20 07:01 Neonat Indirect Bili Not Reportable 02/12/20 07:01 AST 21 U/L (14-36) 02/12/20 07:01 ALT 15 U/L (<35) 02/12/20 07:01 Alkaline Phosphatase 62 U/L (38-126) 02/12/20 07:01 Lactate Dehydrogenase 234 U/L (120-246) 02/11/20 13:12 Creatine Kinase 71 U/L (30-135) 02/11/20 13:12 Troponin I < 0.012 ng/mL 02/11/20 13:12 C-Reactive Protein < 5.0 mg/L (<10.0) 02/11/20 13:12 Total Protein 5.9 g/dL (6.3-8.2) L 02/12/20 07:01 Albumin 3.4 g/dL (3.5-5.0) L 02/12/20 07:01 Urine Color YELLOW 02/11/20 14:43 Urine Appearance CLOUDY 02/11/20 14:43 Urine pH 5.0 (5.0-9.0) 02/11/20 14:43 Ur Specific [place] 1.018 02/11/20 14:43 Urine Protein 30 mg/dL (NEGATIVE) H 02/11/20 14:43 Urine Glucose (UA) NEGATIVE mg/dL (NEGATIVE) 02/11/20 14:43 Urine Ketones NEGATIVE mg/dL (NEGATIVE) 02/11/20 14:43 Urine Blood NEGATIVE (NEGATIVE) 02/11/20 14:43 Urine Nitrite NEGATIVE (NEGATIVE) 02/11/20 14:43 Urine Bilirubin NEGATIVE (NEGATIVE) 02/11/20 14:43 Urine Urobilinogen NEGATIVE mg/dL (<2.0) 02/11/20 14:43 Ur Leukocyte Esterase TRACE (NEGATIVE) H 02/11/20 14:43 Urine WBC (Auto) 10 /HPF 02/11/20 14:43 Urine RBC (Auto) 2 /HPF 02/11/20 14:43 U Hyaline Cast (Auto) 102 /LPF 02/11/20 14:43 Urine Bacteria (Auto) TRACE /HPF 02/11/20 14:43 Squamous Epi Cells Auto 15 /HPF 02/11/20 14:43 Calcium Oxalate Cr Auto FEW /HPF 02/11/20 14:43 Urine Mucus (Auto) FEW /LPF 02/11/20 14:43 Urine Ascorbic Acid NEGATIVE (NEGATIVE) 02/11/20 14:43 Salicylates < 1.0 mg/dL (2.0-20.0) L 02/11/20 13:12 Urine Opiates Screen UNCONFIRMED POSITIVE 02/11/20 14:43 Urine Methadone Screen NEGATIVE 02/11/20 14:43 Ur Barbiturates Screen NEGATIVE 02/11/20 14:43 Ur Phencyclidine Scrn NEGATIVE 02/11/20 14:43 Ur Amphetamines Screen 02/11/20 14:43 U Benzodiazepines Scrn NEGATIVE 02/11/20 14:43 Urine Cocaine Screen NEGATIVE 02/11/20 14:43 U Marijuana (THC) Screen NEGATIVE 02/11/20 14:43 Serum Alcohol < 10 mg/dL (NONE DETECTED) 11/16/20 13:12 COVID-19 Source See comment 02/11/20 13:43 Influenza A (Rapid) NEGATIVE (NEGATIVE) 02/11/20 13:43 Influenza B (Rapid) NEGATIVE (NEGATIVE) 02/11/20 13:43 Group A Strep Rapid NEGATIVE (NEGATIVE) 02/11/20 18:45 02/11/20 13:12 Troponin I < 0.012 Impressions: Chest X-Ray 02/11/20 13:01 IMPRESSION: 1. Hyperinflation of the lungs. No acute pulmonary findings. Head CT 02/11/20 13:01 IMPRESSION: 1. No acute intracranial abnormality. EVIDENCE OF ACUTE STROKE: NO Chest/Abdomen CTA 02/11/20 13:17 IMPRESSION: 1. No pulmonary emboli. 2. Mild bronchial wall thickening with subsegmental mucous plugs in the lower lobes - clinical correlation to exclude an infectious or inflammatory bronchitis is recommended. 3. Pneumobilia - does the patient have a history of prior sphincterotomy? Stroke Is this a Stroke Patient?: No Acute Heart Failure Is this a Heart Failure Patient?: No
== END 2020-02-12 18:00 | disposition home or self-care (01) ==
LOC: ER 12:48 → EH 17:56 → INTOOBSV 17:56 → UNDOADMOB 17:56 → EH 23:37 → UNDODISOB 02-12 18:00
PROVIDERS: ADMIT Internal Medicine; ATTEND Physician Assistant
DX: J96.01 Acute respiratory failure with hypoxia (principal); N17.9 Acute kidney failure, unspecified; E86.0 Dehydration; J06.9 Acute upper respiratory infection, unspecified; R11.2 Nausea with vomiting, unspecified; R19.7 Diarrhea, unspecified; J44.1 Chronic obstructive pulmonary disease with (acute) exacerbation; G93.41 Metabolic encephalopathy; Z20.828 Contact with and (suspected) exposure to other viral communicable diseases; R45.1 Restlessness and agitation; Z88.8 Allergy status to other drugs, medicaments and biological substances; R05 Cough; R41.0 Disorientation, unspecified; M54.9 Dorsalgia, unspecified; G89.29 Other chronic pain; F11.20 Opioid dependence, uncomplicated; R41.9 Unspecified symptoms and signs involving cognitive functions and awareness; Z79.899 Other long term (current) drug therapy
CPT/HCPCS: 93005; 99285; 96374; 96375; 36415 ×2; 87070; 87880; 80307 ×3; 82550; 82728; 83605; 83615; 83735; 85025 ×2; 85384; 85610; 87635; 86140; 80053 ×2; 81001; 84484; 85379; 82803 ×2; 87804; 71045; 70450; 71275; 93010; 94640 ×2; Q0144 ×2; J1630; J3490 ×3; J2405; J7030; J1100 ×2; J2543; C9803

== ENCOUNTER 2020-02-18 04:00 | Emergency (ER) | payer MEDICAID ==
[2020-02-18] MEDS ORDERED: ACETAMINOPHEN 325 MG TABLET PO ONE (04:31)
[2020-02-18] MEDS ORDERED: ACETAMINOPHEN 325 MG TABLET ONE (04:36)
--- NOTE | 2020-02-18 05:14 | RADIOLOGY REPORT (SQ) ---
CT head without contrast on 02/18/2020 at 4:39 AM CLINICAL INDICATION: Head injury, something fell off shelf three days ago and hit head, per protocol for mechanism of injury TECHNIQUE: Multiple axial images are obtained throughout the head without the administration of contrast. This exam was performed according to our departmental dose-optimization program, which includes automated exposure control, adjustment of the mA and/or kV according to patient size and/or use of iterative reconstruction technique. Total DLP is 1096.98 mGy*cm. COMPARISON: 02/11/2020 FINDINGS: There is no hydrocephalus. There is no CT evidence of acute infarct. There is no hemorrhage. There are no abnormal extra-axial fluid collections. There is no mass, mass effect or midline shift. No bony abnormality is noted. There is very small left parietal scalp hematoma seen best on axial image 35. IMPRESSION: No acute intracranial abnormality.
[2020-02-18] MEDS ORDERED: CLINDAMYCIN HCL 150 MG CAPSULE PO ONE (05:47)
[2020-02-18] MEDS ORDERED: HYDROCODONE/ACETAMINOPHEN 5-325 MG TABLET PO ONE (05:48)
--- NOTE | 2020-02-18 05:55 | ER Document Report ---
ED General - General Chief Complaint: Head Injury Stated Complaint: HEAD PAIN LEFT SIDE Time Seen by Provider: 02/18/20 05:23 Primary Care Provider: KIMBER RODRÍGUEZ FNP-C [Primary Care Provider] - Follow up as needed Mode of Arrival: Ambulatory Information source: Patient Notes: Patient is a 49-year-old female coming in today with scalp pain the past week. She states an object fell off a shelf and struck her to the top of the head. She complains that the area feels infected. TRAVEL OUTSIDE OF THE [place] IN LAST 30 DAYS: No - Related Data Allergies/Adverse Reactions: cephalexin monohydrate [From [employer]] Allergy (Verified 03/20/19 19:47) rash Past Medical History - Social History Smoking Status: Current Every Day Smoker Family History: Malignancy Pulmonary Medical History: Reports: Hx Pneumonia - hx 7-8 years ago Denies: Hx Asthma, Hx Bronchitis, Hx COPD, Hx Tuberculosis Neurological Medical History: Denies: Hx Cerebrovascular Accident, Hx Seizures Endocrine Medical History: Denies: Hx Diabetes Mellitus Type 1, Hx Diabetes Mellitus Type 2 Renal/ Medical History: Denies: Hx Peritoneal Dialysis GI Medical History: Reports: Hx Gastroesophageal Reflux Disease. Denies: Hx Hiatal Hernia Musculoskeletal Medical History: Denies Hx Arthritis Psychiatric Medical History: Reports: Hx Anxiety Past Surgical History: Reports: Hx Breast Surgery, Hx Section - X1, Hx Tubal Ligation. Denies: Hx Hysterectomy, Hx Pacemaker - Immunizations Immunizations up to date: Yes Hx Diphtheria, Pertussis, Tetanus Vaccination: Yes Hx Pneumococcal Vaccination: 01/27/12 Review of Systems - Review of Systems Notes: Constitutional: No fevers. No chills. EENT: No eye redness. No eye pain. No ear pain. No sore throat. Cardiovascular: No chest pain. No palpitations. Respiratory: No cough. No shortness of breath. No respiratory distress. Gastrointestinal: No abdominal pain. No nausea, vomiting, or diarrhea. Genitourinary: Atraumatic. No lesions. No pain. No discharge. Musculoskeletal: Atraumatic. No swelling. No deformities. Skin: Scab on top of scalp Lymphatic: No swollen lymph nodes. Neurologic: No headache. No syncope. Psychiatric: No suicidal or homicidal ideation. Physical Exam - Vital signs Vitals: Temp Pulse Resp BP Pulse Ox 97.6 F 90 18 137/97 H 100 11/23/20 04:11 02/18/20 04:11 02/18/20 04:11 02/18/20 04:11 02/18/20 04:11 - Notes Notes: General: Well-developed, well-nourished. In no acute distress. Non-toxic appearing. Cardiac: Well-perfused. Regular rate and rhythm. No murmurs, rubs, or gallops. Pulmonary: No respiratory distress. No cyanosis. Bilateral lung shaikh are clear to auscultation. Abdominal: Non-distended. Non-rigid. Bowels sounds are present in all four quadrants. No guarding or rebound. HEENT: There is a scab to the mid parietal scalp with mild local erythema. No abscess. No purulent drainage. No bleeding. Area is minimally tender to p alpate. Conjunctivae not reddened. No tearing. PERRL. EOMI. Orbits atraumatic. No periorbital swelling or erythema. Oropharynx is without erythema, swelling, or exudates. Neck: Supple. No adenopathy. No meningismus. Dermatologic: Warm with good turgor. No rash. Atraumatic. Chest: Atraumatic. No chest wall tenderness to palpation. Musculoskeletal: Moves all extremities well. No range of motion deficits. no muscular or joint tenderness. No paraspinal muscle tenderness. no midline spinal tenderness or step-off. Genitourinary: Examination deferred Neurologic: No gross neurologic deficits. Psychiatric: Normal mood. Course - Re-evaluation Re-evalutation: 02/18/20 05:53 CT scan is negative. Patient appears to have a small puncture wound on the top of her scalp which has scabbed over. This is apparently been going on for about a week. I will give her a single dose of [place] here but will discharge her home with a prescription for Naprosyn. - Vital Signs Vital signs: Temp Pulse Resp BP Pulse Ox 97.6 F 90 18 137/97 H 100 02/18/20 04:11 02/18/20 04:11 02/18/20 04:11 02/18/20 04:11 02/18/20 04:11 Discharge - Discharge Clinical Impression: Skin infection Head injury Qualifiers: Encounter type: initial encounter Qualified Code(s): S09.90XA - Unspecified injury of head, initial encounter Condition: Good Disposition: HOME, SELF-CARE Instructions: Wound Infection ([facility]) Prescriptions: Clindamycin HCl 300 mg PO TID 7 Days #21 capsule Naproxen 500 mg PO BID 5 Days #10 tablet Referrals: KIMBER RODRÍGUEZ FNP-C [Primary Care Provider] - Follow up as needed
[2020-02-18 06:36] VITALS: BP 147/86
== END 2020-02-18 06:36 | disposition home or self-care (01) ==
LOC: ER 04:00
DX: S09.90XA Unspecified injury of head, initial encounter (principal); L08.89 Other specified local infections of the skin and subcutaneous tissue; W20.8XXA Other cause of strike by thrown, projected or falling object, initial encounter; F17.200 Nicotine dependence, unspecified, uncomplicated; Z98.51 Tubal ligation status
CPT/HCPCS: 99284; 70450; J3490 ×2

== ENCOUNTER 2020-03-31 17:22 | Emergency (ER) | payer MEDICAID | END 2020-03-31 18:15 | disposition left against medical advice (07) | LOC: ER 17:22 | DX: Z53.21 Procedure and treatment not carried out due to patient leaving prior to being seen by health care provider (principal) ==